=== PATIENT | female | born 1975 ===

== ENCOUNTER 2016-11-29 13:23 | Inpatient (IN) | payer MEDICAID, OTHER ==
[2016-11-29 13:24] VITALS: BMI 16.1
[2016-11-29 13:31] VITALS: O2SAT 100
[2016-11-29 15:23] LABS: BASO # 0.1 K/uL (0.0-0.2); BASO % 0.6 % (0.0-2.0); EOS # 0.1 K/uL (0.0-0.7); EOS % 1.1 % (0.0-4.0); LYMPH # 1.3 K/uL (1.0-4.3); LYMPH % 16.1 % (20.0-40.0); MEAN CELL VOLUME 96.1 fL (81.0-99.0); MEAN CORPUSCULAR HEMOGLOBIN 31.6 pg (27.0-31.0); MEAN CORPUSCULAR HGB CONC 32.8 g/dL (33.0-37.0); MEAN PLATELET VOLUME 8.5 fL (7.2-11.7); MONO # 0.8 K/uL (0.0-0.8); MONO % 9.4 % (0.0-10.0); RED CELL DISTRIBUTION WIDTH 12.8 % (11.5-14.5); WHITE BLOOD COUNT 8.2 K/uL (4.8-10.8)
[2016-11-29 15:35] LABS: CHLORIDE 101 mmol/L (98-107); SODIUM 140 mmol/L (132-148)
[2016-11-29 15:37] LABS: GFR AFRICAN-AMERICAN > 60
[2016-11-29 15:38] LABS: ALKALINE PHOSPHATASE 62 U/L (38-126); ALT/SGPT 40 U/L (9-52); AST/SGOT 29 U/L (14-36); BILIRUBIN,TOTAL 0.8 mg/dL (0.2-1.3); BLOOD UREA NITROGEN 11 mg/dL (7-17); CALCIUM 8.8 mg/dl (8.6-10.4); CARBON DIOXIDE 25 mmol/L (22-30); GLUCOSE,RANDOM 90 mg/dL (65-105); TOTAL PROTEIN 8.8 g/dL (6.3-8.3)
[2016-11-29 15:39] LABS: ALCOHOL SERUM < 10 mg/dl (0-10)
[2016-11-29 18:31] LABS: RBC URINE 1 /hpf (0-3); URINE BACTERIA RARE (<OCC); URINE BILIRUBIN NEGATIVE (NEGATIVE); URINE BLOOD NEGATIVE (NEGATIVE); URINE COLOR Yellow (YELLOW); URINE GLUCOSE (UA) NORMAL (Normal); URINE KETONE TRACE mg/dL (NEGATIVE); URINE LEUKOCYTE ESTERASE NEG Leu/uL (Negative); URINE PROTEIN NEGATIVE (NEGATIVE); URINE UROBILINOGEN NORMAL mg/dL (0.2-1.0); WBC URINE < 1 /hpf (0-5)
--- NOTE | 2016-11-29 18:40 | C.PDOC ---
History Of Present Illness Pt was BIBEMS from the clinic due to bizarre behavior. Time Seen by Provider: 11/29/16 14:02 Chief Complaint (Nursing): Psychiatric Evaluation History Per: Patient, EMS History/Exam Limitations: other (Poor insight) Onset/Duration Of Symptoms: Unknown Current Symptoms Are (Timing): Still Present Suicide/Self Injury Attempted (Context): None Modifying Factor(s): None Severity: Moderate Associated Symptoms: Anxiety, Agitation. denies: Suicidal Thoughts, Suicidal Plan Additional History Per: Prior Records Past Medical History Reviewed: Historical Data, Nursing Documentation, Vital Signs Vital Signs: Last Vital Signs Temp 98.7 F 11/29/16 17:41 Pulse 77 11/29/16 17:41 Resp 20 11/29/16 17:41 BP 117/80 11/29/16 17:41 Pulse Ox 100 11/29/16 17:41 - Medical History PMH: Anxiety, Asthma, Bipolar Disorder, Depression, Migraine, Post Traumatic Stress Disorder, Schizophrenia Surgical History: - [facility] Procedures GROUP PSYCHOTHERAPY (11/05/16) INDIVID PSYCHOTHERAP NEC (08/16/14) INDIVIDUAL PSYCHOTHERAPY, BEHAVIORAL (11/05/16) INJECT/INFUSE NEC (08/08/14) OTHER GROUP THERAPY (04/19/14) PSYCHIA INTERV/EVAL NEC (08/12/14) PSYCHIAT DRUG THERAP NEC (08/16/14) Family History: States: Unknown Family Hx - Social History Hx Tobacco Use: Yes Hx Alcohol Use: No Hx Substance Use: No - Immunization History Hx Tetanus Toxoid Vaccination: Yes Hx Influenza Vaccination: No Hx Pneumococcal Vaccination: No Review Of Systems Except As Marked, All Systems Reviewed And Found Negative. Constitutional: Negative for: Fever Cardiovascular: Negative for: Chest Pain Respiratory: Negative for: Shortness of Breath Gastrointestinal: Negative for: Vomiting, Abdominal Pain Musculoskeletal: Negative for: Neck Pain Skin: Negative for: Rash Neurological: Positive for: Headache (?). Negative for: Weakness, Numbness, Seizures Physical Exam - Physical Exam Appears: Non-toxic, No Acute Distress, Agitated (pt is talking to herself and appears to have auditory hallucinations) Skin: Normal Color, Warm, Dry Head: Atraumatic Eye(s): bilateral: PERRL, EOMI Neck: Normal ROM, Supple Cardiovascular: Rhythm Regular Respiratory: Normal Breath Sounds, No Accessory Muscle Use Gastrointestinal/Abdominal: Soft, No Tenderness Back: No CVA Tenderness Extremity: Normal ROM Neurological/Psych: Oriented x3, Normal Motor, Normal Sensation ED Course And Treatment - Laboratory Results Result Diagrams: 11/29/16 15:18 11/29/16 14:11 Lab Interpretation: No Acute Changes Urine POC: Negative O2 Sat by Pulse Oximetry: 100 Pulse Ox Interpretation: Normal Progress Note: Pt is medically stable for psychiatric admission. Disposition Counseled Patient/Family Regarding: Studies Performed, Diagnosis - Disposition Disposition: HOSPITALIZED Disposition Time: 18:40 Condition: STABLE - Clinical Impression Clinical Impression: Bipolar disorder Decision To Admit - Pt Status Changed To: Hospital Disposition Of: Inpatient - Admit Certification Admit to Inpatient:: After my assessment, the patient will require hospitalization for at least two midnights. This is because of the severity of symptoms shown, intensity of services needed, and/or the medical risk in this patient being treated as an outpatient. - InPatient: Physician Admission Certification: I certify that this patient requires 2 or more midnights of care for the following reason:: Psych - . Bed Request Type: Psychiatry Admitting Physician: Yaritza Patel Patient Diagnosis: Bipolar disorder
[2016-11-30] MEDS: Divalproex 500 mg DR Tab PO SCH ×2 (10:53→18:11)
--- NOTE | 2016-11-30 18:08 | PCM.PSYCH ---
Initial Psychiatric Evaluation - Initial Psychiatric Evaluation Type of Admission: Voluntary Legal Status: Capacity Chief Complaint (in patient's own words): I'm feeling very anxious History of Present Illness and Precipitating Events: Patient is a 41 year-old CF, who is currently living alone and has a long history of bipolar disorder with psychosis/schizoaffective disorder bipolar type presented to the ED via EMS with with disorganized and internally preoccupied behavior. According to the collateral information, pt was recently discharged from [address] and instructed to follow-up with [facility] for outpatient mental health treatment. Pt according to her case-manager [employer]ospace has been compliant with attendance despite being unable to participate in the program activities. Pt reportedly has been observed talking to herself and making hand gestures during face-face conversations. As a result pt was sent to the hospital for evaluation. Pt required 1:1 observation in the ED due to erratic and labile behavior. As per the staff, patient remained disorganized and internally preoccupied even in the unit. She continued to pace back and forth in the hallways. She was making a full conversation with herself. She appeared paranoid, delusional and bizarre. However, she denied any thoughts of harming herself or harming others. She also denies any drinking or any substance abuse. Past medical history None reported Current Medications: Active Medications Generic Name Dose Route Start Last Admin Trade Name Freq PRN Reason Stop Dose Admin Divalproex Sodium 500 mg 11/30/16 10:30 11/30/16 10:[address] PO 500 mg BID ANNA Administration Haloperidol 5 mg 11/29/16 22:17 11/30/16 09:56 Haldol PO 5 mg Q1H PRN Administration agitation max 4x/24h Hydroxyzine HCl 25 mg 11/29/16 20:26 11/29/16 22:04 Atarax PO 25 mg Q4H PRN Administration Anxiety Ibuprofen 600 mg 11/29/16 20:26 Motrin Tab PO Q6H PRN Pain, moderate (4-7) Olanzapine 15 mg 11/30/16 10:29 Zyprexa PO HS ANNA Pneumococcal Polyvalent Vaccine 0.5 ml 12/02/16 10:00 Pneumovax 23 Vaccine IM 12/02/16 10:01 .ONCE ONE Past Psychiatric History - Past Psychiatric History Previous Treatment History: Inpatient Pertinent Medical Hx (Current Medical&Sleep Prob, Allergies): Allergies Allergy/AdvReac Type Severity Reaction Status Date / Time nut - unspecified [nut] Allergy SWELLING Verified 11/05/16 10:34 Penicillins Allergy SWELLING Verified 11/05/16 10:34 Benztropine [Cogentin] 1 mg PO BID #60 tab 11/15/16 Olanzapine [Zyprexa] 10 mg PO BID 11/29/16 Review of Systems - Review of Systems All systems: reviewed and no additional remarkable complaints except - Psychiatric Psychiatric: Anxiety, Auditory Hallucinations, Irritability, Paranoia, Visual Hallucinations Mental Status Examination - Personal Presentation Personal Presentation: Looks stated age - Affect Affect: Broad - Motor Activity Motor Activity: Psychomotor Agitation - Reliability in Providing Information Reliability in Providing Information: Poor, due to alteration in thoughts, Poor , due to altered mood - Speech Speech: Disorganized - Mood Mood: Anxious - Formal Thought Process Formal Thought Process: Hallucinations, Delusions, Paranoia, Loosening of associations, Flight of ideas, Circumstantial - Hallucinations/Delusions Hallucinations: Visual, Auditory Delusions: Persecution - Obsessions/Compulsions Obsessions: No Compulsions: No - Cognitive Functions Orientation: Person, Place, Situation, Time Sensorium: Alert Attention/Concentration: Attentive Abstract Thinking: [place] Estimate of Intelligence: Below average Judgement: Imparied, as evidence by: Poor judgement, Imparied, as evidence by: Lack of insight into illness - Risk Risk: Diminished functioning - Limitations Limitations: Living alone DSM 5 DX - DSM 5 DSM 5 Diagnosis: Schizoaffective disorder bipolar type - Recommended/Plan of Treatment Treatment Recommendations and Plan of Treatment: Schizoaffective disorder bipolar type CBT Psychoeducation Supportive therapy, group therapy, individual therapy Olanzapine 15 mg by mouth HS Neurontin 100 mg by mouth 3 times a day Trazodone 50 mg by mouth daily at bedtime Depakote 500 mg by mouth bid - Smoking Cessation Smoking Cessation Initiated: No
[2016-12-01] MEDS: Divalproex 500 mg DR Tab PO SCH ×2 (10:14→17:17)
--- NOTE | 2016-12-01 10:29 | PCM.PYCHPN ---
Psychiatric Progress Note - Psychiatric Progress Note Patient seen today, length of contact: 17 min Patient Chief Complaint: I'm feeling very anxious Problems Identified/Issues Discussed: Patient seen and evaluated, chart reviewed and discussed with the nurse. Patient remained disorganized and internally preoccupied. Patient reports irritability, anxiety and agitation. She reports racing of thoughts and flight of ideas. Patient still appears paranoid and delusional. She is still talking to herself and pacing back and forth in the hallways and appears to have thought blockings. However she denies any auditory or visual hallucinations.she is taking medication and denies any side effects. Supportive therapy and psychoeducation were given. Medication Change: Yes (increase olanzapine) Medical Record Reviewed: Yes Mental Status Examination - Cognitive Function Orientation: Person, Place, Situation, Time Memory: Intact Attention: Poor Concentration: Poor Association: Loose Fund of Knowledge: Poor - Mood Mood: Anxious - Affect Affect: Broad - Formal Thought Process Formal Thought Process: Hallucinations, Delusions, Paranoia, Loosening of associations, Flight of ideas, Circumstantial - Suicidal Ideation Suicidal Ideation: No - Homicidal Ideation Homicidal Ideation: No Goal/Treatment Plan - Goal/Treatment Plan Need for Continued Stay: Remain at risks for inpatient hospitalization, Discharge may exacerbated symptoms, Severe functional impairment Progress Toward Problem(s) and Goals/Treatment Plan: Schizoaffective disorder bipolar type CBT Psychoeducation Supportive therapy, group therapy, individual therapy Olanzapine 15 mg by mouth HS Olanzapine 5 mg daily Neurontin 100 mg by mouth 3 times a day Trazodone 50 mg by mouth daily at bedtime Depakote 500 mg by mouth bid - Smoking Cessation Smoking Cessation Initiated: No
[2016-12-02] MEDS ORDERED: Pneumococcal 23-Valent Vaccine IM ONE (10:00)
[2016-12-02] MEDS: Divalproex 500 mg DR Tab PO SCH ×2 (10:52→17:42)
--- NOTE | 2016-12-02 15:50 | PCM.PYCHPN ---
Psychiatric Progress Note - Psychiatric Progress Note Patient seen today, length of contact: 18 min Patient Chief Complaint: I'm feeling anxious Problems Identified/Issues Discussed: Patient seen and evaluated, chart reviewed and discussed with the nurse. As per the staff, patient continued to have a conversation with herself and continued to pace back and forth in the hallways. Patient remained disorganized and internally preoccupied. Patient still appears paranoid and delusional. However she denies any auditory or visual hallucinations. She is taking medication and denies any side effects. Supportive therapy and psychoeducation were given. Medication Change: Yes (start Prolixin) Medical Record Reviewed: Yes Mental Status Examination - Cognitive Function Orientation: Person, Place, Situation, Time Memory: Intact Attention: Poor Concentration: Poor Association: Loose Fund of Knowledge: Poor - Mood Mood: Anxious - Affect Affect: Broad - Formal Thought Process Formal Thought Process: Hallucinations, Delusions, Paranoia, Loosening of associations, Flight of ideas, Circumstantial - Suicidal Ideation Suicidal Ideation: No - Homicidal Ideation Homicidal Ideation: No Goal/Treatment Plan - Goal/Treatment Plan Need for Continued Stay: Remain at risks for inpatient hospitalization, Discharge may exacerbated symptoms, Severe functional impairment Progress Toward Problem(s) and Goals/Treatment Plan: Schizoaffective disorder bipolar type CBT Psychoeducation Supportive therapy, group therapy, individual therapy D/C Olanzapine 15 mg by mouth HS Olanzapine 5 mg HS Prolixin 5 mg by mouth twice a day Neurontin 100 mg by mouth 3 times a day Trazodone 50 mg by mouth daily at bedtime Depakote 500 mg by mouth bid - Smoking Cessation Smoking Cessation Initiated: No
--- NOTE | 2016-12-03 09:43 | PCM.PYCHPN ---
Psychiatric Progress Note - Psychiatric Progress Note Patient seen today, length of contact: 17 min Patient Chief Complaint: I'm feeling anxious Problems Identified/Issues Discussed: Patient seen and evaluated, chart reviewed and discussed with the nurse. Today patient remained disorganized and internally preoccupied. She still pacing back and forth in the hallways and appears very delusional, paranoid and psychotic. She appears disheveled and unkempt. However she is taking medication and denies any side effects. Supportive therapy and psychoeducation were given. Medication Change: Yes (start Prolixin) Medical Record Reviewed: Yes Mental Status Examination - Cognitive Function Orientation: Person, Place, Situation, Time Memory: Intact Attention: Poor Concentration: Poor Association: Loose Fund of Knowledge: Poor - Mood Mood: Anxious - Affect Affect: Broad - Formal Thought Process Formal Thought Process: Hallucinations, Delusions, Paranoia, Loosening of associations, Flight of ideas, Circumstantial - Suicidal Ideation Suicidal Ideation: No - Homicidal Ideation Homicidal Ideation: No Goal/Treatment Plan - Goal/Treatment Plan Need for Continued Stay: Remain at risks for inpatient hospitalization, Discharge may exacerbated symptoms, Severe functional impairment Progress Toward Problem(s) and Goals/Treatment Plan: Schizoaffective disorder bipolar type CBT Psychoeducation Supportive therapy, group therapy, individual therapy D/C Olanzapine 15 mg by mouth HS Olanzapine 5 mg HS Prolixin 5 mg by mouth twice a day Neurontin 100 mg by mouth 3 times a day Trazodone 50 mg by mouth daily at bedtime Depakote 500 mg by mouth bid - Smoking Cessation Smoking Cessation Initiated: No
[2016-12-03] MEDS: Divalproex 500 mg DR Tab PO SCH ×2 (10:24→18:01)
[2016-12-04] MEDS: Divalproex 500 mg DR Tab PO SCH ×2 (10:04→18:17)
--- NOTE | 2016-12-04 11:29 | PCM.PYCHPN ---
Psychiatric Progress Note - Psychiatric Progress Note Patient seen today, length of contact: 16 min Patient Chief Complaint: I'm feeling anxious Problems Identified/Issues Discussed: Patient seen and evaluated, chart reviewed and discussed with the nurse. As per the staff, patient continued to have a conversation with herself and continued to pace back and forth in the hallways. She is still denying any auditory or visual hallucinations. However she appears a bit more organized but remained internally preoccupied, and delusional. She is taking medication and denies any side effects. Supportive therapy and psychoeducation were given. Medication Change: Yes (Increase Prolixin) Medical Record Reviewed: Yes Mental Status Examination - Cognitive Function Orientation: Person, Place, Situation, Time Memory: Intact Attention: Poor Concentration: Poor Association: Loose Fund of Knowledge: Poor - Mood Mood: Anxious - Affect Affect: Broad - Formal Thought Process Formal Thought Process: Hallucinations, Delusions, Paranoia, Loosening of associations, Flight of ideas, Circumstantial - Suicidal Ideation Suicidal Ideation: No - Homicidal Ideation Homicidal Ideation: No Goal/Treatment Plan - Goal/Treatment Plan Need for Continued Stay: Remain at risks for inpatient hospitalization, Discharge may exacerbated symptoms, Severe functional impairment Progress Toward Problem(s) and Goals/Treatment Plan: Schizoaffective disorder bipolar type CBT Psychoeducation Supportive therapy, group therapy, individual therapy Olanzapine 5 mg HS Prolixin 5 mg by mouth twice a day Neurontin 100 mg by mouth 3 times a day Trazodone 50 mg by mouth daily at bedtime Depakote 500 mg by mouth bid - Smoking Cessation Smoking Cessation Initiated: No
[2016-12-05] MEDS: Divalproex 500 mg DR Tab PO SCH ×2 (09:32→17:50)
--- NOTE | 2016-12-05 16:15 | PCM.PYCHPN ---
Psychiatric Progress Note - Psychiatric Progress Note Patient seen today, length of contact: 15 min Patient Chief Complaint: I'm feeling anxious Problems Identified/Issues Discussed: Patient seen and evaluated, chart reviewed and discussed with the nurse. As per the staff patient has started attending groups. However she leaves the group and starts pacing back and forth in the hallways. She is reporting anxiety and irritability and she denies any auditory or visual hallucinations.she still appears unkempt and disheveled and still appears paranoid and delusional. She is taking medication and denies any side effects. Supportive therapy and psychoeducation were given. Medication Change: Yes (Discontinue olanzapine) Medical Record Reviewed: Yes Mental Status Examination - Cognitive Function Orientation: Person, Place, Situation, Time Memory: Intact Attention: Poor Concentration: Poor Association: Loose Fund of Knowledge: Poor - Mood Mood: Anxious - Affect Affect: Broad - Formal Thought Process Formal Thought Process: Hallucinations, Delusions, Paranoia, Loosening of associations, Flight of ideas, Circumstantial - Suicidal Ideation Suicidal Ideation: No - Homicidal Ideation Homicidal Ideation: No Goal/Treatment Plan - Goal/Treatment Plan Need for Continued Stay: Remain at risks for inpatient hospitalization, Discharge may exacerbated symptoms, Severe functional impairment, Other Progress Toward Problem(s) and Goals/Treatment Plan: Schizoaffective disorder bipolar type CBT Psychoeducation Supportive therapy, group therapy, individual therapy Prolixin 5 mg by mouth twice a day Neurontin 100 mg by mouth 3 times a day Trazodone 50 mg by mouth daily at bedtime Depakote 500 mg by mouth bid - Smoking Cessation Smoking Cessation Initiated: No
[2016-12-06] MEDS: Divalproex 500 mg DR Tab PO SCH ×2 (11:46→21:20)
--- NOTE | 2016-12-06 14:21 | PCM.PYCHPN ---
Psychiatric Progress Note - Psychiatric Progress Note Patient seen today, length of contact: 18 min Patient Chief Complaint: I feel happy Problems Identified/Issues Discussed: Pt seen, chart reviewed and case discussed. Pt is compliant with treatment, without adverse effects. Reports feeling better and like her mind is clear. Does admit to feeling like people are out to get her at times. Pt noted to be pacing in the hallways, talking to herself. Pt's symptoms are slightly improved , however continues to be disorganized and internally preoccupied. Denies auditory hallucinations, visual hallucinations, suicidal ideation, homicidal ideation. Aftercare discussed, psychoeducation and support given. Medication Change: No Medical Record Reviewed: Yes Mental Status Examination - Cognitive Function Orientation: Person, Place, Situation, Time Memory: Intact Attention: Poor Concentration: Poor Association: Loose Fund of Knowledge: Poor - Mood Mood: Anxious - Affect Affect: Flat - Speech Speech: Appropriate - Formal Thought Process Formal Thought Process: Hallucinations, Delusions, Paranoia, Loosening of associations - Suicidal Ideation Suicidal Ideation: No - Homicidal Ideation Homicidal Ideation: No Goal/Treatment Plan - Goal/Treatment Plan Need for Continued Stay: Remain at risks for inpatient hospitalization, Discharge may exacerbated symptoms, Severe functional impairment Progress Toward Problem(s) and Goals/Treatment Plan: Schizoaffective disorder bipolar type CBT Psychoeducation Supportive therapy, group therapy, individual therapy Prolixin 5 mg by mouth every morning Prolixin 10 mg by mouth daily at bedtime Trazodone 50 mg by mouth daily at bedtime Depakote 500 mg by mouth bid Cogentin 1 mg by mouth twice a day Estimated Date of D/C: 12/09/16 - Smoking Cessation Smoking Cessation Initiated: No
--- NOTE | 2016-12-06 15:22 | PCM.PYCHPN ---
Psychiatric Progress Note - Psychiatric Progress Note Patient seen today, length of contact: 18 min Patient Chief Complaint: I feel happy Problems Identified/Issues Discussed: Pt seen, chart reviewed and case discussed. Pt is compliant with treatment, without adverse effects. Reports feeling better and like her mind is clear. Does admit to feeling like people are out to get her at times. Pt noted to be pacing in the hallways, talking to herself. Pt's symptoms are slightly improved , however continues to be disorganized and internally preoccupied. Denies auditory hallucinations, visual hallucinations, suicidal ideation, homicidal ideation. Aftercare discussed, psychoeducation and support given. Medication Change: No Medical Record Reviewed: Yes Mental Status Examination - Cognitive Function Orientation: Person, Place, Situation, Time Memory: Intact Attention: Poor Concentration: Poor Association: Loose Fund of Knowledge: Poor - Mood Mood: Anxious - Affect Affect: Flat - Speech Speech: Appropriate - Formal Thought Process Formal Thought Process: Hallucinations, Delusions, Paranoia, Loosening of associations - Suicidal Ideation Suicidal Ideation: No - Homicidal Ideation Homicidal Ideation: No Goal/Treatment Plan - Goal/Treatment Plan Need for Continued Stay: Remain at risks for inpatient hospitalization, Discharge may exacerbated symptoms, Severe functional impairment Progress Toward Problem(s) and Goals/Treatment Plan: Schizoaffective disorder bipolar type CBT Psychoeducation Supportive therapy, group therapy, individual therapy D/C Olanzapine 15 mg by mouth HS Olanzapine 5 mg HS Prolixin 5 mg by mouth twice a day Neurontin 100 mg by mouth 3 times a day Trazodone 50 mg by mouth daily at bedtime Depakote 500 mg by mouth bid Estimated Date of D/C: 12/08/16
[2016-12-07] MEDS: Divalproex 500 mg DR Tab PO SCH (10:10)
--- NOTE | 2016-12-07 14:52 | PCM.PYCHPN ---
Psychiatric Progress Note - Psychiatric Progress Note Patient seen today, length of contact: 17 min Patient Chief Complaint: I m feeling better Problems Identified/Issues Discussed: Pt seen, chart reviewed and case discussed. As per the staff patient appears more organized but remained internally preoccupied. She is still pacing back and forth in the hallways and talking to herself. Although she is taking showers and appears kempt but she continues to have a bedsheet on her shoulders, with that sometimes she wraps herself. she reports that her mind is more clear and denies any auditory or visual hallucinations. She is requesting to change Depakote pill to the liquid Depakene. Aftercare discussed, psychoeducation and support given. Medication Change: Yes (increase Prolixin, change Depakote) Medical Record Reviewed: Yes Mental Status Examination - Cognitive Function Orientation: Person, Place, Situation, Time Memory: Intact Attention: WNL Concentration: Poor Association: Loose Fund of Knowledge: Poor - Mood Mood: Anxious - Affect Affect: Flat - Speech Speech: Appropriate - Formal Thought Process Formal Thought Process: Delusions, Paranoia, Loosening of associations - Suicidal Ideation Suicidal Ideation: No - Homicidal Ideation Homicidal Ideation: No Goal/Treatment Plan - Goal/Treatment Plan Need for Continued Stay: Remain at risks for inpatient hospitalization, Discharge may exacerbated symptoms, Severe functional impairment Progress Toward Problem(s) and Goals/Treatment Plan: Schizoaffective disorder bipolar type CBT Psychoeducation Supportive therapy, group therapy, individual therapy Prolixin 10 mg by mouth every morning Prolixin 10 mg by mouth daily at bedtime Trazodone 50 mg by mouth daily at bedtime Change Depakote to Depakene solution 500 mg by mouth bid Cogentin 1 mg by mouth twice a day Estimated Date of D/C: 12/09/16 - Smoking Cessation Smoking Cessation Initiated: No
[2016-12-07] MEDS: Valproic Acid 250 mg/5 ml UD Cup PO SCH (18:37)
[2016-12-08] MEDS: Valproic Acid 250 mg/5 ml UD Cup PO SCH ×2 (10:43→18:28)
--- NOTE | 2016-12-08 11:17 | PCM.PYCHPN ---
Psychiatric Progress Note - Psychiatric Progress Note Patient seen today, length of contact: 17 min Patient Chief Complaint: I m feeling better Problems Identified/Issues Discussed: Pt seen, chart reviewed and case discussed. Patient reports improvement in mood and paranoia. She denies any auditory or visual hallucinations and denies any delusions. She is asking to increase the sleep medications. However she looked forward to go home tomorrow. She is taking medication and denied any side effects. Aftercare discussed, psychoeducation and support given. Medication Change: No (VPA level) Medical Record Reviewed: Yes Mental Status Examination - Cognitive Function Orientation: Person, Place, Situation, Time Memory: Intact Attention: WNL Concentration: WNL Association: WNL Fund of Knowledge: WNL - Mood Mood: Anxious - Affect Affect: Flat - Speech Speech: Appropriate, Soft - Formal Thought Process Formal Thought Process: No Impairment - Suicidal Ideation Suicidal Ideation: No - Homicidal Ideation Homicidal Ideation: No Goal/Treatment Plan - Goal/Treatment Plan Need for Continued Stay: Remain at risks for inpatient hospitalization, Discharge may exacerbated symptoms, Severe functional impairment Progress Toward Problem(s) and Goals/Treatment Plan: Schizoaffective disorder bipolar type CBT Psychoeducation Supportive therapy, group therapy, individual therapy Prolixin 10 mg by mouth every morning Prolixin 10 mg by mouth daily at bedtime Trazodone 50 mg by mouth daily at bedtime Change Depakote to Depakene solution 500 mg by mouth bid Cogentin 1 mg by mouth twice a day Estimated Date of D/C: 12/09/16 - Smoking Cessation Smoking Cessation Initiated: No
[2016-12-09] MEDS: Valproic Acid 250 mg/5 ml UD Cup PO SCH (10:03)
--- NOTE | 2016-12-09 10:05 | PCM.PYCHDC ---
Mental Status Examination - Mental Status Examination Orientation: Person, Place, Situation, Time Memory: Intact Mood: Neutral Affect: Constricted Speech: Soft Attention: WNL Concentration: WNL Association: WNL Fund of Knowledge: WNL Formal Thought Process: No Impairment Description of patient's judgement and insight: good, fair Psychotic Thoughts and Behaviors: denies any AVH Suicidal Ideation: No Current Homicidal Ideation?: No Discharge Summary - Discharge Note Reason for Hospitalization: Patient is a 41 year-old CF, who is currently living alone and has a long history of bipolar disorder with psychosis/schizoaffective disorder bipolar type presented to the ED via EMS with with disorganized and internally preoccupied behavior. According to the collateral information, pt was recently discharged from [address] and instructed to follow-up with [facility] for outpatient mental health treatment. Pt according to her case-cage manager has been compliant with attendance despite being unable to participate in the program activities. Pt reportedly has been observed talking to herself and making hand gestures during face-face conversations. As a result pt was sent to the hospital for evaluation. Pt required 1:1 observation in the ED due to erratic and labile behavior. As per the staff, patient remained disorganized and internally preoccupied even in the unit. She continued to pace back and forth in the hallways. She was making a full conversation with herself. She appeared paranoid, delusional and bizarre. However, she denied any thoughts of harming herself or harming others. She also denies any drinking or any substance abuse. Laboratory Data: Abnormal Lab Results 12/09/16 07:04 Valproic Acid 68.9 Consultations:: List each consultation separately and include: 1. Reason for request. 2. Findings. 3. Follow-up Summary of Hospital Course include:: 1. Description of specific treatment plan utilized for patients during their course of treatmen. 2. Summarize the time- course for resolution of acute symptoms and/or regressed behaviors. 3. Describe issues identified and worked on during hospitalization. 4. Describe medication utilized. 5. Describe medical problems identified and treated. 6. Reassessment of suicide risk Summary of Hospital Course: During the course of her stay, patient (pt) started progressively improving and she no longer remained irritable, anxious and paranoid. Her mood and paranoia were improved and she started attending groups and meetings and started socializing. Patient denied any feelings of hopelessness, helplessness, and worthlessness, denied any problem with the sleep or appetite, denied suicidal ideation or homicidal ideation. Pt denied any auditory or visual hallucinations. Some changes were made in her current medications and patient was discharged on following medications. She tolerated these medications very well and denied any side effects. - Final Diagnosis (DSM 5) Condition upon Discharge: STABLE DSM 5: Schizoaffective disorder bipolar type Disposition: HOME/ ROUTINE Follow-up Treatment Plan: Education: Pt was educated and counseled about the risks and benefits of taking and not taking medications. Pt was educated and counseled about the risks of drinking and abusing drugs. Pt was educated and counseled to go to the ER or call 911 if pt develop suicidal ideation or homicidal ideation, worsening of symptoms or severe side effects of the meds. Prescriptions/Medication Reconciliation: Benztropine [Cogentin] 1 mg PO BID #60 tab Divalproex [Depakote DR(*BID*)] 500 mg PO BID #60 tcp fluPHENAZine [Prolixin] 10 mg PO BID #60 tab - Smoking Cessation Smoking Cessation Medication prescribed: No - Antipsychotic Medications Pt discharged on 2 or more routine antipsychotic medications: No
[2016-12-09 11:10] VITALS: BP 105/69; PULSE 70; RESP 20; TEMP 93
== END 2016-12-09 12:00 | disposition home or self-care (01) | DRG 430 ==
LOC: C.ER 13:23 → C.5E 18:41
PROVIDERS: ADMIT Psychiatry & Neurology Psychiatry; ATTEND Psychiatry & Neurology Psychiatry
DX: F25.0 Schizoaffective disorder, bipolar type (principal)

== ENCOUNTER 2017-07-31 13:54 | Inpatient (IN) | payer MEDICAID, OTHER ==
[2017-07-31 13:55] VITALS: BMI 16.9
[2017-07-31 14:39] LABS: BASO % 0.6 % (0.0-2.0); EOS # 0.1 K/uL (0.0-0.7); EOS % 1.2 % (0.0-4.0); HEMATOCRIT 40.5 % (34.0-47.0); LYMPH # 1.7 K/uL (1.0-4.3); LYMPH % 24.4 % (20.0-40.0); MEAN CELL VOLUME 95.4 fL (81.0-99.0); MEAN CORPUSCULAR HEMOGLOBIN 32.4 pg (27.0-31.0); MEAN PLATELET VOLUME 9.3 fL (7.2-11.7); MONO # 0.6 K/uL (0.0-0.8); MONO % 8.3 % (0.0-10.0); RED CELL DISTRIBUTION WIDTH 12.2 % (11.5-14.5); WHITE BLOOD COUNT 6.9 K/uL (4.8-10.8)
[2017-07-31 14:48] LABS: ALCOHOL SERUM < 10 mg/dl (0-10); ALKALINE PHOSPHATASE 72 U/L (38-126); ALT/SGPT 38 U/L (9-52); AST/SGOT 21 U/L (14-36); BILIRUBIN,TOTAL 0.9 mg/dL (0.2-1.3); BLOOD UREA NITROGEN 9 mg/dL (7-17); CALCIUM 8.6 mg/dl (8.6-10.4); CARBON DIOXIDE 32 mmol/L (22-30); CHLORIDE 101 mmol/L (98-107); GFR AFRICAN-AMERICAN > 60; GLUCOSE,RANDOM 89 mg/dL (65-105); POTASSIUM 3.9 mmol/L (3.6-5.2); SODIUM 140 mmol/L (132-148); TOTAL PROTEIN 9.2 g/dL (6.3-8.3)
[2017-07-31 14:51] LABS: ALB/GLOB RATIO 0.8 (1.0-2.1)
[2017-07-31 15:06] LABS: RBC URINE 1 /hpf (0-3); URINE BACTERIA MOD (<OCC); URINE BILIRUBIN NEGATIVE (NEGATIVE); URINE BLOOD NEGATIVE (NEGATIVE); URINE COLOR Yellow (YELLOW); URINE GLUCOSE (UA) NORMAL (Normal); URINE KETONE NEGATIVE (NEGATIVE); URINE LEUKOCYTE ESTERASE NEG Leu/uL (Negative); URINE PROTEIN NEGATIVE (NEGATIVE); URINE UROBILINOGEN NORMAL mg/dL (0.2-1.0); WBC URINE 4 /hpf (0-5)
--- NOTE | 2017-07-31 15:06 | C.PDOC ---
History Of Present Illness 41-year-old female, PMHx includes Anxiety, Asthma, Bipolar Disorder, Depression , Migraine, Post Traumatic Stress Disorder, and Schizophrenia, presents to the emergency department with complaints of two-day duration of depression, and suicidal ideation. Patient states her plan is to overdose on her own medication. Patient also notes auditory hallucinations, telling her to kill herself. Denies any EtOH or drug use. Denies HI. No other complaints at this time. Time Seen by Provider: 07/31/17 14:10 Chief Complaint (Nursing): Psychiatric Evaluation History Per: Patient History/Exam Limitations: no limitations Current Symptoms Are (Timing): Still Present Past Medical History Reviewed: Historical Data, Nursing Documentation, Vital Signs Vital Signs: Last Vital Signs Temp 97.4 F L 07/31/17 14:02 Pulse 81 07/31/17 14:02 Resp 17 07/31/17 14:02 BP 122/82 07/31/17 14:02 Pulse Ox 99 07/31/17 16:54 - Medical History PMH: Anxiety, Asthma, Bipolar Disorder, Depression, Migraine, Post Traumatic Stress Disorder, Schizophrenia Surgical History: - [facility] GROUP PSYCHOTHERAPY (01/09/17) INDIVID PSYCHOTHERAP NEC (08/16/14) INDIVIDUAL PSYCHOTHERAPY, BEHAVIORAL (01/09/17) INJECT/INFUSE NEC (08/08/14) OTHER GROUP THERAPY (04/19/14) PSYCHIA INTERV/EVAL NEC (08/12/14) PSYCHIAT DRUG THERAP NEC (08/16/14) Family History: States: Unknown Family Hx - Social History Hx Tobacco Use: Yes Hx Alcohol Use: No (denies) Hx Substance Use: No (denies) - Immunization History Hx Tetanus Toxoid Vaccination: Yes Hx Influenza Vaccination: No Hx Pneumococcal Vaccination: No Review Of Systems Except As Marked, All Systems Reviewed And Found Negative. Constitutional: Negative for: Fever, Chills Cardiovascular: Negative for: Chest Pain Respiratory: Negative for: Shortness of Breath Gastrointestinal: Negative for: Vomiting Musculoskeletal: Negative for: Back Pain Neurological: Negative for: Weakness, Numbness, Headache Psych: Positive for: Depression Physical Exam - Physical Exam Appears: Non-toxic, No Acute Distress Skin: Warm, Dry, No Rash Head: Atraumatic, Normacephalic Eye(s): bilateral: Normal Inspection, PERRL Nose: Normal Oral Mucosa: Moist Lips: Normal Appearing Neck: Normal ROM Chest: Symmetrical Cardiovascular: Rhythm Regular, No Murmur Respiratory: Normal Breath Sounds, No Accessory Muscle Use Extremity: Normal ROM Neurological/Psych: Oriented x3, Normal Speech, Other (no focal deficit) ED Course And Treatment - Laboratory Results Result Diagrams: 07/31/17 14:31 07/31/17 14:31 O2 Sat by Pulse Oximetry: 99 Medical Decision Making Medical Decision Making: Patient cleared by psych and admitted to Dr Ibanez for schizoeffective disorder, bipolar type. Disposition Discussed With Dr.: Gen Ibanez Doctor Will See Patient In The: Hospital - Disposition Disposition: HOSPITALIZED Disposition Time: 16:56 Condition: STABLE Forms: [facility] (Romanian) - Clinical Impression Clinical Impression: Schizoaffective disorder - Scribe Statement The provider has reviewed the documentation as recorded by the Scribehsan Luna All medical record entries made by the Scribe were at my direction and personally dictated by me. I have reviewed the chart and agree that the record accurately reflects my personal performance of the history, physical exam, medical decision making, and the department course for this patient. I have also personally directed, reviewed, and agree with the discharge instructions and disposition.
--- NOTE | 2017-07-31 22:38 | PCM.BM ---
<Wei Barrera - Last Filed: 07/31/17 22:36> Treatment Plan Problems - Problems identified on initial assessmt Auditory Hallucination Date Initiated: 07/31/17 Time Initiated: 17:35 Assessment reference: NA Status: Active Suicidal Ideation Date Initiated: 07/31/17 Time Initiated: 17:35 Assessment reference: NA Status: Monitor Treatment assets and liabiliti Patient Assests: ADL independent, physically healthy, good support system, negotiates basic needs - Milieu Protocol Maintain good personal hygiene: daily Encourage regular showers, daily Remind patient to perform daily oral care, every shift Assist patient to perform ADL's Conduct patient checks and document Observation sheet: Q15 minutes Maintain personal safety: every shift Educate patient to report safety concerns to staff, every shift Monitor environment for contraband/sharps Medication safety: Monitor for expected outcome, potential side effects: every shift, Assess barriers to learning: every shift, Assess readiness for medication education: every shift <Gen Ibanez - Last Filed: 08/01/17 21:19> - Diagnosis (1) Schizoaffective disorder Status: Acute Interventions: 08/01/17 21:20 * Assess/adjust medications daily and /or as needed * See patient on an individual basis 7x/week to assess status of hallucinations * Discuss risks, benefits, side effects and alternatives of medications * <Elsa Castro - Last Filed: 08/04/17 10:43> Family Contact Family involvement: Family/SO is involved Family contact: Patient declines to allow family contact at present Discharge/Continuing Care - Education Needs Education Needs: Patient Medication, Patient Coping Skills - Discharge Discharge Criteria: Tolerates medication w/o severe side effects, Reduction of target symptoms Discharge to:: Home - Treatment Team Participation Discussed with Family/SO: No Was Patient/Family/SO present at Treatment Team Meeting: Yes
--- NOTE | 2017-08-01 15:12 | PCM.PSYCH ---
Initial Psychiatric Evaluation - Initial Psychiatric Evaluation Type of Admission: Voluntary Legal Status: Capacity Chief Complaint (in patient's own words): I'm alright doctor" History of Present Illness and Precipitating Events: Pt is a 41 y/o female who has a history of Bipolar Disorder, Depression , Migraine, Post Traumatic Stress Disorder, Schizophrenia was admitted 07/31 for with depression, Suicidal ideation and auditory hallucinations. As per the ED note, 'pt. reported that she called EMS because she was afraid to stay home due to feeling suicidal with a plan to OD on pills. Pt. reports that she has not been sleeping and has been pacing a lot. Pt. reports that she has a supportive family, but did not want her mother called. Pt remained a poor historian during assessment and remained guarded and superficially cooperative. Pt displays disorganized thought process and flat affect during the interview and on the floor. Pt states that she lives with her mother. Pt was diagnosed in 2016 by her psychiatrist, Dr. Pollock of [facility]. She has been prescribed Prozac by previously mentioned physician. She states the elizabeth stressor and trigger of her depression are thoughts on her past failed relationship. Pt states she is still experiencing auditory hallucinations command type but denies visual hallucinations. She said she was not able to get any sleep for 2 days. However she denies any homicidal ideations. Pt states the she drinks 2 glasses of wine a day and her last drink was on 07/21. She reports to smoke 5 cigarettes a day for the past 5 years. Pt is interested in smoking cessation. Past MHX: Asthma, Migraine, Post Traumatic Stress Disorder, Current Medications: Active Medications Generic Name Dose Route Start Last Admin Trade Name Freq PRN Reason Stop Dose Admin Benztropine Mesylate 1 mg 07/31/17 19:25 07/31/17 20:47 Cogentin PO 1 mg Q6H PRN Administration EPS symptoms Buspirone HCl 10 mg 07/31/17 19:00 08/01/17 10:45 Buspar PO 10 mg BID ANNA Administration Divalproex Sodium 250 mg 07/31/17 19:00 08/01/17 10:46 Depakote Er PO 250 mg BID ANNA Administration Haloperidol 5 mg 07/31/17 19:25 07/31/17 20:46 Haldol PO 5 mg PRN PRN Administration Severe anxiety Pneumococcal Polyvalent Vaccine 0.5 ml 08/03/17 10:00 Pneumovax 23 Vaccine IM 08/03/17 10:01 .ONCE ONE Trazodone HCl 50 mg 07/31/17 18:53 Desyrel PO HS PRN Insomnia Past Psychiatric History - Past Psychiatric History Previous Treatment History: Inpatient Pertinent Medical Hx (Current Medical&Sleep Prob, Allergies): Allergies Allergy/AdvReac Type Severity Reaction Status Date / Time almond Allergy RASH Verified 06/06/17 04:42 nut - unspecified [nut] Allergy SWELLING Verified 06/06/17 04:42 peanut Allergy RASH Verified 06/06/17 04:42 Penicillins Allergy SWELLING Verified 06/06/17 04:42 shellfish derived Allergy RASH Verified 06/06/17 04:42 Benztropine [Benztropine Mesylate] 1 mg PO BID 07/31/17 Buspar 07/31/17 Divalproex Sodium [Divalproex Sodium ER] 500 mg PO DAILY 07/31/17 Review of Systems - Review of Systems All systems: reviewed and no additional remarkable complaints except - Neurological Neurological: UNREMARKABLE - Psychiatric Psychiatric: Abnormal Sleep Pattern, Auditory Hallucinations, Change in Appetite , Depression, Irritability, Suicidal Ideation Mental Status Examination - Personal Presentation Personal Presentation: Looks stated age - Affect Affect: Flat - Motor Activity Motor Activity: Calm - Reliability in Providing Information Reliability in Providing Information: Poor, due to alteration in thoughts - Speech Speech: Disorganized - Mood Mood: Depressed, Anxious - Formal Thought Process Formal Thought Process: Hallucinations, Delusions, Paranoia, Loosening of associations - Hallucinations/Delusions Hallucinations: Auditory Delusions: Persecution - Obsessions/Compulsions Obsessions: No Compulsions: No - Cognitive Functions Orientation: Person, Place, Situation, Time Sensorium: Alert Attention/Concentration: Attentive Abstract Thinking: [place] Judgement: Imparied, as evidence by: Poor judgement, Imparied, as evidence by: Lack of insight into illness Memory: Recent intact, as evidence by: Ability to recall events of the day, Remote intact, as evidenced by: Ability to recall historical events - Risk Risk: Suicidal, Withdrawal, Diminished functioning - Limitations Limitations: Living alone DSM 5 DX - DSM 5 DSM 5 Diagnosis: Schizoaffective disorder bipolar type Alcohol use disorder mild - Recommended/Plan of Treatment Treatment Recommendations and Plan of Treatment: Schizoaffective disorder bipolar type CBT Psychoeducation Supportive therapy, group therapy, individual therapy Olanzapine 5 g by mouth twice a day Neurontin 100 mg by mouth 3 times a day Trazodone 50 mg by mouth daily at bedtime Alcohol use disorder mild CBT Psychoeducation Supportive therapy, individual therapy Use [place] for abstinence Asthma Continue prescribed medications Monitor signs and symptoms - Smoking Cessation Smoking Cessation Initiated: No
[2017-08-02 07:22] VITALS: O2SAT 97
--- NOTE | 2017-08-02 12:07 | PCM.PYCHPN ---
Psychiatric Progress Note - Psychiatric Progress Note Patient Chief Complaint: I'm alright doctor" Mental Status Examination - Cognitive Function Orientation: Person, Place, Situation, Time - Mood Mood: Depressed, Anxious - Affect Affect: Flat - Formal Thought Process Formal Thought Process: Hallucinations, Delusions, Paranoia, Loosening of associations - Homicidal Ideation Homicidal Ideation: No Goal/Treatment Plan - Goal/Treatment Plan Progress Toward Problem(s) and Goals/Treatment Plan: Schizoaffective disorder bipolar type CBT Psychoeducation Supportive therapy, group therapy, individual therapy Olanzapine 5 g by mouth twice a day Neurontin 100 mg by mouth 3 times a day Trazodone 50 mg by mouth daily at bedtime Alcohol use disorder mild CBT Psychoeducation Supportive therapy, individual therapy Use [place] for abstinence Asthma Continue prescribed medications Monitor signs and symptoms
[2017-08-03] MEDS ORDERED: Pneumococcal 23-Valent Vaccine IM ONE (10:00)
--- NOTE | 2017-08-03 11:39 | PCM.PYCHPN ---
Psychiatric Progress Note - Psychiatric Progress Note Patient Chief Complaint: I'm alright doctor" Mental Status Examination - Cognitive Function Orientation: Person, Place, Situation, Time - Mood Mood: Depressed, Anxious - Affect Affect: Flat - Formal Thought Process Formal Thought Process: Hallucinations, Delusions, Paranoia, Loosening of associations - Homicidal Ideation Homicidal Ideation: No Goal/Treatment Plan - Goal/Treatment Plan Progress Toward Problem(s) and Goals/Treatment Plan: Schizoaffective disorder bipolar type CBT Psychoeducation Supportive therapy, group therapy, individual therapy Olanzapine 5 g by mouth twice a day Neurontin 100 mg by mouth 3 times a day Trazodone 50 mg by mouth daily at bedtime Alcohol use disorder mild CBT Psychoeducation Supportive therapy, individual therapy Use [place] for abstinence Asthma Continue prescribed medications Monitor signs and symptoms
--- NOTE | 2017-08-04 10:49 | PCM.PYCHPN ---
Psychiatric Progress Note - Psychiatric Progress Note Patient seen today, length of contact: 17 min Patient Chief Complaint: I'm feeling better" Problems Identified/Issues Discussed: This patient was seen, chart reviewed, and case discussed with staff. Patient appears slightly disheveled with a flat affect. She appears more organized and less paranoid and less delusional than before. However, she continued to pace back and forth in the hallways. Patient remained isolated, confined and withdrawn. Patient still appears mildly paranoid and delusional. She reports improvement in her mood and improvement in the feelings of hopelessness and helplessness. Patient is compliant with medications and denies any side effects. Symptoms are improving but need more time to stabilize. Support and psychoeducation given. Medication Change: No Medical Record Reviewed: Yes Mental Status Examination - Cognitive Function Orientation: Person, Place, Situation, Time Attention: Poor Concentration: WNL Association: WNL Fund of Knowledge: Poor - Mood Mood: Depressed - Affect Affect: Flat - Speech Speech: Soft - Formal Thought Process Formal Thought Process: Loosening of associations - Suicidal Ideation Suicidal Ideation: No - Homicidal Ideation Homicidal Ideation: No Goal/Treatment Plan - Goal/Treatment Plan Need for Continued Stay: Severe depression anxiety, Discharge may exacerbated symptoms, Severe functional impairment Progress Toward Problem(s) and Goals/Treatment Plan: Schizoaffective disorder bipolar type CBT Psychoeducation Supportive therapy, group therapy, individual therapy Olanzapine 5 mg by mouth twice a day Neurontin 100 mg by mouth 3 times a day Trazodone 50 mg by mouth daily at bedtime Alcohol use disorder mild CBT Psychoeducation Supportive therapy, individual therapy Use [place] for abstinence Asthma Continue prescribed medications Monitor signs and symptoms - Smoking Cessation Smoking Cessation Initiated: No
--- NOTE | 2017-08-05 10:18 | PCM.PYCHPN ---
Psychiatric Progress Note - Psychiatric Progress Note Patient seen today, length of contact: 17 Patient Chief Complaint: I'm feeling better" Problems Identified/Issues Discussed: This patient was seen, chart reviewed, and case discussed with staff. Patient reports that her sleep was good. Pt states that her appetite is good. She states that she is no longer experiencing feelings of depression and hopelessness. Pt denies feelings of paranoia and anxiety. She denies suicidal ideations and homicidal ideations. She denies any auditory or visual hallucination. Patient appears slightly disheveled with a flat affect. She displays soft speech pattern and is cooperative. Pt has been participating in groups and has been interacting with the staff and other patients. Patient is compliant with medications and denies any side effects. Symptoms are improving but need more time to stabilize. Support and psychoeducation given. Medication Change: Yes (change depakote and prolixin) Medical Record Reviewed: Yes Mental Status Examination - Cognitive Function Orientation: Person, Place, Situation, Time Attention: WNL Concentration: WNL Association: Loose Fund of Knowledge: Poor - Mood Mood: Depressed - Affect Affect: Flat - Speech Speech: Soft - Formal Thought Process Formal Thought Process: Loosening of associations - Suicidal Ideation Suicidal Ideation: No - Homicidal Ideation Homicidal Ideation: No Goal/Treatment Plan - Goal/Treatment Plan Need for Continued Stay: Severe depression anxiety, Discharge may exacerbated symptoms, Severe functional impairment Progress Toward Problem(s) and Goals/Treatment Plan: Schizoaffective disorder bipolar type CBT Psychoeducation Supportive therapy, group therapy, individual therapy Olanzapine 5 g by mouth twice a day Neurontin 100 mg by mouth 3 times a day Trazodone 50 mg by mouth daily at bedtime Alcohol use disorder mild CBT Psychoeducation Supportive therapy, individual therapy Use [place] for abstinence Asthma Continue prescribed medications Monitor signs and symptoms
[2017-08-05] MEDS: Divalproex 500 mg ER Tab PO SCH (21:23)
--- NOTE | 2017-08-06 09:29 | PCM.PYCHPN ---
Psychiatric Progress Note - Psychiatric Progress Note Patient seen today, length of contact: 17 min Patient Chief Complaint: I'm feeling better" Problems Identified/Issues Discussed: This patient was seen, chart reviewed, and case discussed with staff. Patient reports improvement in her paranoia and mood. However, she continued to pace back and forth in the hallways and remained isolated, and withdrawn. Patient still appears mildly paranoid and delusional. She reports improvement in her mood and improvement in the feelings of hopelessness and helplessness. Patient is compliant with medications and denies any side effects. Symptoms are improving but need more time to stabilize. Support and psychoeducation given. Medication Change: Yes (change depakote and prolixin) Medical Record Reviewed: Yes Mental Status Examination - Cognitive Function Orientation: Person, Place, Situation, Time Attention: WNL Concentration: WNL Association: Loose Fund of Knowledge: Poor - Mood Mood: Depressed - Affect Affect: Flat - Speech Speech: Soft - Formal Thought Process Formal Thought Process: Loosening of associations - Suicidal Ideation Suicidal Ideation: No - Homicidal Ideation Homicidal Ideation: No Goal/Treatment Plan - Goal/Treatment Plan Need for Continued Stay: Severe depression anxiety, Discharge may exacerbated symptoms, Severe functional impairment Progress Toward Problem(s) and Goals/Treatment Plan: Schizoaffective disorder bipolar type CBT Psychoeducation Supportive therapy, group therapy, individual therapy Olanzapine 10 mg by mouth QHS Depakote 500 mg PO QHS Buspar 10 mg PO BID Trazodone 50 mg by mouth daily at bedtime Alcohol use disorder mild CBT Psychoeducation Supportive therapy, individual therapy Use [place] for abstinence Asthma Continue prescribed medications Monitor signs and symptoms - Smoking Cessation Smoking Cessation Initiated: No
[2017-08-06] MEDS: Divalproex 500 mg ER Tab PO SCH (22:09)
[2017-08-07] MEDS: Divalproex 500 mg ER Tab PO SCH (21:41)
--- NOTE | 2017-08-07 22:12 | PCM.PYCHPN ---
Psychiatric Progress Note - Psychiatric Progress Note Patient seen today, length of contact: 15 minute Patient Chief Complaint: I am feeling better. After eating food I just walk on the unit. Problems Identified/Issues Discussed: Patient seen, chart reviewed, case discussed with the staff. Issues related to illness and treatment were discussed with the patient and staff. Reported compliant with treatment with no adverse effects. Feeling much better. Aftercare discussed with the patient. Patient was awake, alert and oriented 3. Denied any delusions, auditory or visual hallucinations, suicidal ideations or homicidal ideations at the time of evaluation.. Medical Problems: None reported Diagnostic Results: Reviewed DSM 5 Symptoms Update: Improving with treatment Medication Change: No Medical Record Reviewed: Yes Mental Status Examination - Cognitive Function Orientation: Person, Place, Situation, Time Memory: Intact Attention: WNL Concentration: WNL Association: WNL Fund of Knowledge: [facility] Decription of patient's judgement and insights: Fair - Mood Mood: Neutral - Affect Affect: Other (Appropriate) - Speech Speech: Soft - Formal Thought Process Formal Thought Process: No Impairment Psychotic Thoughts and Behaviors: None - Suicidal Ideation Suicidal Ideation: No - Homicidal Ideation Homicidal Ideation: No Goal/Treatment Plan - Goal/Treatment Plan Need for Continued Stay: Remain at risks for inpatient hospitalization, Discharge may exacerbated symptoms, Severe functional impairment Progress Toward Problem(s) and Goals/Treatment Plan: Patient education Supportive therapy Continue treatment as before Patient will go to [facility] for follow-up care after discharge from the hospital. Estimated Date of D/C: 08/08/17 - Smoking Cessation Smoking Cessation Initiated: No
[2017-08-08 07:13] VITALS: BP 100/68; PULSE 74; RESP 18; TEMP 97
--- NOTE | 2017-08-08 09:58 | PCM.PYCHDC ---
Mental Status Examination - Mental Status Examination Orientation: Person, Place, Situation, Time Memory: Intact Mood: Neutral Affect: Constricted Speech: Soft Attention: WNL Concentration: WNL Association: WNL Fund of Knowledge: WNL Formal Thought Process: No Impairment Description of patient's judgement and insight: good, fair Psychotic Thoughts and Behaviors: Denies any AVH Suicidal Ideation: No Current Homicidal Ideation?: No Discharge Summary - Discharge Note Reason for Hospitalization: Pt is a 41 y/o female who has a history of Bipolar Disorder, Depression , Migraine, Post Traumatic Stress Disorder, Schizophrenia was admitted 07/31 for with depression, Suicidal ideation and auditory hallucinations. As per the ED note, 'pt. reported that she called EMS because she was afraid to stay home due to feeling suicidal with a plan to OD on pills. Pt. reports that she has not been sleeping and has been pacing a lot. Pt. reports that she has a supportive family, but did not want her mother called. Pt remained a poor historian during assessment and remained guarded and superficially cooperative. Pt displays disorganized thought process and flat affect during the interview and on the floor. Pt states that she lives with her mother. Pt was diagnosed in 2016 by her psychiatrist, Dr. Babb of [facility]. She has been prescribed Prozac by previously mentioned physician. She states the elizabeth stressor and trigger of her depression are thoughts on her past failed relationship. Pt states she is still experiencing auditory hallucinations command type but denies visual hallucinations. She said she was not able to get any sleep for 2 days. However she denies any homicidal ideations. Pt states the she drinks 2 glasses of wine a day and her last drink was on 07/21. She reports to smoke 5 cigarettes a day for the past 5 years. Pt is interested in smoking cessation. Consultations:: List each consultation separately and include: 1. Reason for request. 2. Findings. 3. Follow-up Summary of Hospital Course include:: 1. Description of specific treatment plan utilized for patients during their course of treatmen. 2. Summarize the time- course for resolution of acute symptoms and/or regressed behaviors. 3. Describe issues identified and worked on during hospitalization. 4. Describe medication utilized. 5. Describe medical problems identified and treated. 6. Reassessment of suicide risk Summary of Hospital Course: During the course of her stay, patient (pt) started progressively improving and she no longer remained irritable, anxious and paranoid. Her mood and paranoia were improved and she started attending groups and meetings and started socializing. Patient denied any feelings of hopelessness, helplessness, and worthlessness, denied any problem with the sleep or appetite, denied suicidal ideation or homicidal ideation. Pt denied any auditory or visual hallucinations. Some changes were made in her current medications and patient was discharged on following medications. She tolerated these medications very well and denied any side effects. She was discharged with a plan to follow-up with [facility]. - Diagnosis (1) Schizoaffective disorder Status: Acute Priority: High Comment: axis;schizoaffective disorder r/o substans abuse induced mood disorder eating disorder nos Haughton Ii ;none axis III;h/o pnumonia axis iV;eating disorder axis v; Plan : will start pt depression and eating disorder and increase risperdal to 1 mgmg bid for psychosis and pt agreed . patient needs further stabilization and D/C planning supportive psychotherapy. get collateral info from dr babb patient is asking to leave today and signed 48 hrs notie. can't hold her againist her will. she is not suicidal, not psychotic and has her own apartment. mother was made aware of the D/C AMA. - Final Diagnosis (DSM 5) Condition upon Discharge: STABLE DSM 5: Schizoaffective disorder bipolar type Alcohol use disorder mild Disposition: HOME/ ROUTINE Follow-up Treatment Plan: Education: Pt was educated and counseled about the risks and benefits of taking and not taking medications. Pt was educated and counseled about the risks of drinking and abusing drugs. Pt was educated and counseled to go to the ER or call 911 if pt develop suicidal ideation or homicidal ideation, worsening of symptoms or severe side effects of the meds. Prescriptions/Medication Reconciliation: Benztropine [Cogentin] 1 mg PO HS #30 tab busPIRone [Buspar] 10 mg PO BID #60 tab Divalproex [Depakote ER] 500 mg PO HS #30 ter fluPHENAZine [Prolixin] 10 mg PO HS #30 tab traZODone [Desyrel] 50 mg PO HS PRN #30 tab PRN Reason: Insomnia
== END 2017-08-08 10:40 | disposition home or self-care (01) | DRG 430 ==
LOC: C.ER 13:54 → C.5E 16:56
PROVIDERS: ADMIT Psychiatry & Neurology Psychiatry; ATTEND Psychiatry & Neurology Psychiatry
DX: F25.0 Schizoaffective disorder, bipolar type (principal); F50.9 Eating disorder, unspecified; F17.210 Nicotine dependence, cigarettes, uncomplicated; F43.10 Post-traumatic stress disorder, unspecified; G43.909 Migraine, unspecified, not intractable, without status migrainosus; J45.909 Unspecified asthma, uncomplicated

== ENCOUNTER 2017-09-23 12:10 | Inpatient (IN) | payer MEDICAID, OTHER ==
[2017-09-23 12:10] VITALS: BMI 16.9
[2017-09-23 12:42] LABS: HCG,QUALITATIVE URINE NEGATIVE (NEGATIVE)
[2017-09-23 12:49] LABS: SQUAMOUS EPITHIAL 21 /hpf (0-5); URINE BACTERIA MANY (<OCC); URINE BILIRUBIN NEGATIVE (NEGATIVE); URINE BLOOD NEGATIVE (NEGATIVE); URINE CLARITY Hazy (Clear); URINE COLOR Yellow (YELLOW); URINE GLUCOSE (UA) NORMAL (Normal); URINE LEUKOCYTE ESTERASE NEG Leu/uL (Negative); URINE NITRATE NEGATIVE (NEGATIVE); URINE PROTEIN NEGATIVE (NEGATIVE); URINE UROBILINOGEN NORMAL mg/dL (0.2-1.0)
[2017-09-23 13:09] LABS: BARBITURATES, UR NEGATIVE (NEGATIVE); BENZODIAZEPINES, UR NEGATIVE (NEGATIVE); OPIATES, UR NEGATIVE (NEGATIVE); PHENCYCLIDINE, UR NEGATIVE (NEGATIVE)
[2017-09-23 13:21] LABS: BASO % 0.5 % (0.0-2.0); EOS % 0.6 % (0.0-4.0); HEMOGLOBIN 13.2 g/dL (11.0-16.0); LYMPH # 1.4 K/uL (1.0-4.3); LYMPH % 22.2 % (20.0-40.0); MEAN CELL VOLUME 94.3 fL (81.0-99.0); MEAN CORPUSCULAR HEMOGLOBIN 33.4 pg (27.0-31.0); MEAN CORPUSCULAR HGB CONC 35.4 g/dL (33.0-37.0); MEAN PLATELET VOLUME 9.1 fL (7.2-11.7); MONO # 0.7 K/uL (0.0-0.8); MONO % 10.8 % (0.0-10.0); NEUT # 4.3 K/uL (1.8-7.0); NEUT % 65.9 % (50.0-75.0); RBC 3.96 Mil/uL (3.80-5.20); RED CELL DISTRIBUTION WIDTH 12.3 % (11.5-14.5); WHITE BLOOD COUNT 6.5 K/uL (4.8-10.8)
[2017-09-23 13:33] LABS: ALT/SGPT 19 U/L (9-52); AST/SGOT 20 U/L (14-36); BLOOD UREA NITROGEN 9 mg/dL (7-17); CALCIUM 8.9 mg/dl (8.6-10.4); GFR AFRICAN-AMERICAN > 60; GFR NON-AFRICAN AMERICAN > 60
--- NOTE | 2017-09-23 14:20 | C.PDOC ---
History Of Present Illness 42 year old female, with PMHx of depression with suicide attempts, presents to ED for evaluation of suicidal ideation without plan. Pt admits to being non- compliant with her medications. Otherwise, denies chest pain, shortness of breath, headache, fever, chills, cough, nausea, vomiting, diarrhea, abdominal pain, dizziness, lightheadedness, or any other physical complaints at this time. Time Seen by Provider: 09/23/17 12:29 Chief Complaint (Nursing): Psychiatric Evaluation History Per: Patient History/Exam Limitations: no limitations Onset/Duration Of Symptoms: Gradual Current Symptoms Are (Timing): Still Present Modifying Factor(s): None Severity: None Pain Scale Rating Of: 0 Associated Symptoms: Suicidal Thoughts. denies: Suicidal Plan Involuntary Hold By: None Recent travel outside of the [place]: No Additional History Per: Patient Past Medical History Reviewed: Historical Data, Nursing Documentation, Vital Signs Vital Signs: Last Vital Signs Temp 97.6 F 09/23/17 15:34 Pulse 79 09/23/17 15:34 Resp 18 09/23/17 15:34 BP 111/79 09/23/17 15:34 Pulse Ox 99 09/23/17 15:34 - Medical History PMH: Anxiety, Asthma, Bipolar Disorder, Depression, Migraine, Post Traumatic Stress Disorder, Schizophrenia Denies: Diabetes, Hepatitis, HIV, HTN, Chronic Kidney Disease, Seizures, Sexually Transmitted Disease Surgical History: - [facility] Procedures GROUP PSYCHOTHERAPY (01/09/17) INDIVID PSYCHOTHERAP NEC (08/16/14) INDIVIDUAL PSYCHOTHERAPY, BEHAVIORAL (01/09/17) INJECT/INFUSE NEC (08/08/14) OTHER GROUP THERAPY (04/19/14) PSYCHIA INTERV/EVAL NEC (08/12/14) PSYCHIAT DRUG THERAP NEC (08/16/14) Family History: States: Unknown Family Hx - Social History Hx Tobacco Use: Yes Hx Alcohol Use: Yes Hx Substance Use: No - Immunization History Hx Tetanus Toxoid Vaccination: Yes Hx Influenza Vaccination: No Hx Pneumococcal Vaccination: No Review Of Systems Except As Marked, All Systems Reviewed And Found Negative. Constitutional: Negative for: Fever, Chills Cardiovascular: Negative for: Chest Pain, Palpitations Respiratory: Negative for: Cough, Shortness of Breath Gastrointestinal: Negative for: Nausea, Vomiting, Abdominal Pain Neurological: Negative for: Headache, Dizziness Psych: Positive for: Suicidal ideation Physical Exam - Physical Exam Appears: Non-toxic, No Acute Distress Skin: Normal Color, Warm, Dry Head: Normacephalic Eye(s): bilateral: PERRL Nose: No Flaring Oral Mucosa: Moist Neck: Normal ROM, Supple Cardiovascular: Rhythm Regular Respiratory: No Accessory Muscle Use, No Rales, No Rhonchi, No Wheezing Extremity: Normal ROM, No Deformity Neurological/Psych: Oriented x3, Normal Speech ED Course And Treatment - Laboratory Results Result Diagrams: 09/23/17 13:13 09/23/17 13:13 Lab Interpretation: Normal O2 Sat by Pulse Oximetry: 96 (RA) Pulse Ox Interpretation: Normal Progress Note: Blood work, UA ordered and reviewed. AT 14:00, PT IS MEDICALLY CLEARED FOR PES EVALUATION. Pt was seen by PES Josefa, case discussed with psych -on-call and admission arranged. 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 - Scribe Statement The provider has reviewed the documentation as recorded by the Scribe Ruben Montelongo All medical record entries made by the Joseibehsan were at my direction and personally dictated by me. I have reviewed the chart and agree that the record accurately reflects my personal performance of the history, physical exam, medical decision making, and the department course for this patient. I have also personally directed, reviewed, and agree with the discharge instructions and disposition.
--- NOTE | 2017-09-23 17:27 | PCM.BM ---
<Ghulam Diaz - Last Filed: 09/23/17 17:25> Treatment Plan Problems - Problems identified on initial assessmt Depression Date Initiated: 09/23/17 Time Initiated: 17:15 Assessment reference: NA Status: Active Anxiety Date Initiated: 09/23/17 Time Initiated: 17:15 Assessment reference: NA Status: Active Treatment assets and liabiliti Patient Assests: cooperative, ADL independent, physically healthy, good support system, negotiates basic needs - Milieu Protocol Maintain good personal hygiene: daily Encourage regular showers, every shift Remind patient to perform daily oral care, every shift Assist patient to perform ADL's Conduct patient checks and document Observation sheet: Q15 minutes (For safety) Maintain personal safety: every shift Educate patient to report safety concerns to staff, every shift Monitor environment for contraband/sharps Medication safety: Monitor for expected outcome, potential side effects: every shift, Assess barriers to learning: every shift, Assess readiness for medication education: every shift <Gen Ibanez - Last Filed: 09/26/17 10:57> - Diagnosis (1) Schizophrenia Status: Acute Interventions: 09/26/17 10:58 * Assess/adjust medications daily and /or as needed * See patient on an individual basis 7x/week to assess status of hallucinations * Discuss risks, benefits, side effects and alternatives of medications * <Elsa Castro - Last Filed: 09/26/17 11:16> Family Contact Family involvement: Family/SO is involved Family contact: Patient declines to allow family contact at present - Goals for Treatment Patient goals for treatment: "I'm doing fine." Discharge/Continuing Care - Education Needs Education Needs: Patient Medication, Patient Coping Skills - Discharge Discharge Criteria: Tolerates medication w/o severe side effects, Reduction of target symptoms Discharge to:: Home, With Family - Treatment Team Participation Discussed with Family/SO: No Was Patient/Family/SO present at Treatment Team Meeting: Yes
--- NOTE | 2017-09-24 20:12 | PCM.PSYCH ---
Initial Psychiatric Evaluation - Initial Psychiatric Evaluation Type of Admission: Voluntary Legal Status: Capacity Chief Complaint (in patient's own words): I started feeling depressed and anxious. History of Present Illness and Precipitating Events: Pt is a 41 y/o female with history of Bipolar Disorder, Depression, Post Traumatic Stress Disorder, Schizophrenia, was admitted for depression, Suicidal ideation and auditory hallucinations. Patient was a poor historian and guarder and most of the formations were obtained from the old record. Patient reported she was suicidal with a plan to OD on pills. Pt. reports that she has not been sleeping and has been pacing a lot. Pt displays disorganized thought process and flat affect during the evaluation and on the floor. Pt states that she lives with her mother. Pt was diagnosed in 2016 by her psychiatrist, Dr. Pollock of [facility]. She has been prescribed Prozac by previously mentioned physician. She states the elizabeth stressor and trigger of her depression are thoughts on her past failed relationship. Pt states she is still experiencing auditory hallucinations command type but denies visual hallucinations. She reported no sleep for last 2 days. However she denies any homicidal ideations. Pt reported the she drinks 2 glasses of wine a day and her last drink was on 07/21. She smoke 5 cigarettes a day for the past 5 years. Pt is interested in smoking cessation. Patient denied use of any other drugs. Patient was unable to recall with treatment which she was getting. The medications were started according to the old record. Current Medications: Active Medications Generic Name Dose Route Start Last Admin Trade Name Freq PRN Reason Stop Dose Admin Benztropine Mesylate 1 mg 09/24/17 10:00 09/24/17 17:21 Cogentin PO 1 mg BID ANNA Administration Buspirone HCl 10 mg 09/24/17 18:00 09/24/17 17:22 Buspar PO 10 mg BID ANNA Administration Divalproex Sodium 250 mg 09/24/17 10:00 09/24/17 17:21 Depakote Er PO 250 mg BID ANNA Administration Fluphenazine HCl 5 mg 09/24/17 10:00 09/24/17 17:21 Prolixin PO 5 mg BID ANNA Administration Haloperidol 5 mg 09/23/17 18:40 Haldol PO Q8 PRN Agitation Trazodone HCl 50 mg 09/23/17 18:40 Desyrel PO HS PRN Insomnia Past Psychiatric History - Past Psychiatric History Previous Treatment History: Inpatient Prior Professional Help: [facility] History of Abuse: None report History of ETOH/Drug Use: See HPI History of Family Illness: None reported Pertinent Medical Hx (Current Medical&Sleep Prob, Allergies): Allergies Allergy/AdvReac Type Severity Reaction Status Date / Time almond Allergy RASH Verified 06/06/17 04:42 nut - unspecified [nut] Allergy SWELLING Verified 06/06/17 04:42 peanut Allergy RASH Verified 06/06/17 04:42 Penicillins Allergy SWELLING Verified 06/06/17 04:42 shellfish derived Allergy RASH Verified 06/06/17 04:42 Benztropine [Benztropine Mesylate] 1 mg PO BID 07/31/17 Buspar 07/31/17 Divalproex Sodium [Divalproex Sodium ER] 500 mg PO DAILY 07/31/17 Benztropine [Cogentin] 1 mg PO HS #30 tab 08/08/17 Divalproex [Depakote ER] 500 mg PO HS #30 ter 08/08/17 busPIRone [Buspar] 10 mg PO BID #60 tab 08/08/17 fluPHENAZine [Prolixin] 10 mg PO HS #30 tab 08/08/17 traZODone [Desyrel] 50 mg PO HS PRN #30 tab 08/08/17 Review of Systems - Psychiatric Psychiatric: Hallucinations, Other Mental Status Examination - Personal Presentation Personal Presentation: Looks stated age - Affect Affect: Constricted - Motor Activity Motor Activity: Calm - Reliability in Providing Information Reliability in Providing Information: Poor, due to alteration in thoughts - Speech Speech: Relevant - Mood Mood: Depressed - Formal Thought Process Formal Thought Process: Other - Hallucinations/Delusions Hallucinations: Other (None reported at the time of evaluation) Delusions: Other (None reported) - Obsessions/Compulsions Obsessions: None Compulsions: None - Cognitive Functions Orientation: Person, Place, Situation, Time Sensorium: Alert Attention/Concentration: Attentive Estimate of Intelligence: Average Judgement: Intact, as evidence by: Insight regarding need for hospitalization Memory: Recent intact, as evidence by: Other, Remote impaired as evidenced by: Inability to recall historical events - Risk Risk: Withdrawal, Diminished functioning - Strength & Assets Inventory Strength & Assets Inventory: Family support, Other - Limitations Limitations: Other DSM 5 DX - DSM 5 DSM 5 Diagnosis: Schizoaffective disorder bipolar type PTSD Alcohol use disorder moderate - Recommended/Plan of Treatment Treatment Recommendations and Plan of Treatment: Patient education Supportive therapy Started fluphenazine Other as needed medications. Projected ELOS: 8-10 days - Smoking Cessation Smoking Cessation Initiated: No
--- NOTE | 2017-09-25 13:08 | PCM.PYCHPN ---
Psychiatric Progress Note - Psychiatric Progress Note Patient seen today, length of contact: 15 minutes Patient Chief Complaint: I'm feeling much better. Problems Identified/Issues Discussed: Patient seen, chart reviewed, case discussed with the staff. Issues related to illness and treatment were discussed with the patient. Reported compliant with treatment with no adverse affects. Feeling better with better sleep and mood. Staff reported that patient was found pacing and appeared depressed, patient denied. Patient reported feeling better and no depression. Aftercare discussed with the patient. Patient didn't decided checked for her follow-up care. At the time of evaluation, patient was awake alert oriented 3, no delusions, no auditory or visual hallucinations, no suicidal ideations or homicidal ideations. Medical Problems: None reported Diagnostic Results: Reviewed DSM 5 Symptoms Update: Some improvement with treatment. Medication Change: No Medical Record Reviewed: Yes Mental Status Examination - Cognitive Function Orientation: Person, Place, Situation, Time Memory: Intact Attention: WNL Concentration: WNL Association: WNL Fund of Knowledge: WN Decription of patient's judgement and insights: Fair - Mood Mood: Neutral - Affect Affect: Flat - Speech Speech: Appropriate - Formal Thought Process Formal Thought Process: No Impairment - Suicidal Ideation Suicidal Ideation: No - Homicidal Ideation Homicidal Ideation: No Goal/Treatment Plan - Goal/Treatment Plan Need for Continued Stay: Remain at risks for inpatient hospitalization, Discharge may exacerbated symptoms, Severe functional impairment Progress Toward Problem(s) and Goals/Treatment Plan: Patient education Supportive therapy Continue treatment as before. Estimated Date of D/C: 09/28/17 - Smoking Cessation Smoking Cessation Initiated: No
[2017-09-26 06:41] VITALS: O2SAT 95
--- NOTE | 2017-09-26 10:55 | PCM.PYCHPN ---
Psychiatric Progress Note - Psychiatric Progress Note Patient seen today, length of contact: 15 minutes Patient Chief Complaint: i was feeling anxious Problems Identified/Issues Discussed: Patient seen and evaluated, chart reviewed and discussed with the nurse. Patient appears more organized and less paranoid and less delusional. Patient remained isolated, confined and withdrawn. Patient still appears mildly paranoid and delusional. Patient reports improvement in her mood and improvement in her anxiety. Pt denies auditory and visual hallucinations. Patient retracted her 48 hours discharge notice, and agreed the treatment plan. Patient is compliant with medications and denies any side effects. Symptoms are improving but need more time to stabilize. Support and psychoeducation given. Medication Change: No Medical Record Reviewed: Yes Mental Status Examination - Cognitive Function Orientation: Person, Place, Situation, Time Memory: Intact Attention: WNL Concentration: WNL Association: Loose Fund of Knowledge: WNL - Mood Mood: Anxious - Affect Affect: Constricted - Speech Speech: Appropriate, Soft - Formal Thought Process Formal Thought Process: Paranoia, Loosening of associations - Suicidal Ideation Suicidal Ideation: No - Homicidal Ideation Homicidal Ideation: No Goal/Treatment Plan - Goal/Treatment Plan Need for Continued Stay: Remain at risks for inpatient hospitalization, Discharge may exacerbated symptoms, Severe functional impairment Progress Toward Problem(s) and Goals/Treatment Plan: Schizoaffective disorder bipolar type PTSD CBT Psychoeducation Supportive therapy, group therapy, individual therapy Increase Prolixin to 10 mg by mouth twice a day Depakote 250 mg PO BID Buspar 10 mg PO 2 times a day Trazodone 50 mg by mouth daily at bedtime Alcohol use disorder moderate CBT Psychoeducation Supportive therapy, individual therapy Use [place] for abstinence Estimated Date of D/C: 09/28/17 - Smoking Cessation Smoking Cessation Initiated: No
--- NOTE | 2017-09-27 12:56 | PCM.PYCHPN ---
Psychiatric Progress Note - Psychiatric Progress Note Patient seen today, length of contact: 15 minutes Patient Chief Complaint: I feel anxious Problems Identified/Issues Discussed: Patient seen and evaluated, chart reviewed and discussed with the nurse. Patient appears more organized and less paranoid and less delusional. Patient remained isolated, confined and withdrawn. Patient reports improvement in her mood and improvement in her anxiety. Pt denies auditory and visual hallucinations. Patient is compliant with medications and denies any side effects. Symptoms are improving but need more time to stabilize. Support and psychoeducation given. Medication Change: No Medical Record Reviewed: Yes Mental Status Examination - Cognitive Function Orientation: Person, Place, Situation, Time Memory: Intact Attention: WNL Concentration: WNL Association: Loose Fund of Knowledge: WNL - Mood Mood: Anxious - Affect Affect: Constricted - Speech Speech: Appropriate, Soft - Formal Thought Process Formal Thought Process: Paranoia, Loosening of associations - Suicidal Ideation Suicidal Ideation: No - Homicidal Ideation Homicidal Ideation: No Goal/Treatment Plan - Goal/Treatment Plan Need for Continued Stay: Remain at risks for inpatient hospitalization, Discharge may exacerbated symptoms, Severe functional impairment Progress Toward Problem(s) and Goals/Treatment Plan: Schizoaffective disorder bipolar type PTSD -CBT -Psychoeducation -Supportive therapy, group therapy, individual therapy -Prolixin to 10 mg by mouth twice a day -Depakote 250 mg PO BID -Buspar 10 mg PO 2 times a day -Trazodone 50 mg by mouth daily at bedtime Alcohol use disorder moderate -CBT -Psychoeducation -Supportive therapy, individual therapy -Use [place] for abstinence UTI -Cipro 500mg PO BID - Repeat UA prior to discharge DW Ivonne Newton DO, PGY-1 Estimated Date of D/C: 09/28/17
[2017-09-28 06:31] VITALS: BP 117/78; PULSE 73; RESP 20; TEMP 98.1
--- NOTE | 2017-09-28 11:05 | PCM.PYCHDC ---
Mental Status Examination - Mental Status Examination Orientation: Person, Place, Situation, Time Memory: Intact Mood: Neutral Affect: Constricted Speech: Soft Attention: WNL Concentration: WNL Association: WNL Fund of Knowledge: WNL Formal Thought Process: No Impairment Description of patient's judgement and insight: good, fair Psychotic Thoughts and Behaviors: denies any AVH Suicidal Ideation: No Current Homicidal Ideation?: No Discharge Summary - Discharge Note Reason for Hospitalization: Pt is a 41 y/o female with history of Bipolar Disorder, Depression, Post Traumatic Stress Disorder, Schizophrenia, was admitted for depression, Suicidal ideation and auditory hallucinations. Patient was a poor historian and guarder and most of the formations were obtained from the old record. Patient reported she was suicidal with a plan to OD on pills. Pt. reports that she has not been sleeping and has been pacing a lot. Pt displays disorganized thought process and flat affect during the evaluation and on the floor. Pt states that she lives with her mother. Pt was diagnosed in 2016 by her psychiatrist, Dr. Pollock of [facility]. She has been prescribed Prozac by previously mentioned physician. She states the elizabeth stressor and trigger of her depression are thoughts on her past failed relationship. Pt states she is still experiencing auditory hallucinations command type but denies visual hallucinations. She reported no sleep for last 2 days. However she denies any homicidal ideations. Pt reported the she drinks 2 glasses of wine a day and her last drink was on 07/21. She smoke 5 cigarettes a day for the past 5 years. Pt is interested in smoking cessation. Patient denied use of any other drugs. Patient was unable to recall with treatment which she was getting. The medications were started according to the old record. Consultations:: List each consultation separately and include: 1. Reason for request. 2. Findings. 3. Follow-up Summary of Hospital Course include:: 1. Description of specific treatment plan utilized for patients during their course of treatmen. 2. Summarize the time- course for resolution of acute symptoms and/or regressed behaviors. 3. Describe issues identified and worked on during hospitalization. 4. Describe medication utilized. 5. Describe medical problems identified and treated. 6. Reassessment of suicide risk - Diagnosis (1) Schizophrenia Current Visit: No Status: Acute Priority: High - Final Diagnosis (DSM 5) Condition upon Discharge: STABLE DSM 5: Schizoaffective disorder bipolar type PTSD Alcohol use disorder moderate Disposition: HOME/ ROUTINE Follow-up Treatment Plan: Schizoaffective disorder bipolar type PTSD CBT Psychoeducation Supportive therapy, group therapy, individual therapy Increase Prolixin to 10 mg by mouth twice a day Depakote 250 mg PO BID Buspar 10 mg PO 2 times a day Trazodone 50 mg by mouth daily at bedtime Alcohol use disorder moderate CBT Psychoeducation Supportive therapy, individual therapy Use UT for abstinence Prescriptions/Medication Reconciliation: Benztropine [Cogentin] 1 mg PO BID #60 tab busPIRone [Buspar] 10 mg PO BID #60 tab Ciprofloxacin [Cipro] 500 mg PO BID #10 tab Divalproex [Depakote ER] 250 mg PO BID #60 ter fluPHENAZine [Prolixin] 10 mg PO BID #60 tab - Smoking Cessation Smoking Cessation Medication prescribed: No - Antipsychotic Medications Pt discharged on 2 or more routine antipsychotic medications: No
== END 2017-09-28 11:20 | disposition home or self-care (01) | DRG 430 ==
LOC: C.ER 12:10 → C.5E 15:28
PROC: GZ56ZZZ Individual Psychotherapy, Supportive (ICD-10-PCS; principal; 2017-09-23)
DX: F25.0 Schizoaffective disorder, bipolar type (principal); Z91.14 Patient's other noncompliance with medication regimen; F10.10 Alcohol abuse, uncomplicated; N39.0 Urinary tract infection, site not specified; F17.210 Nicotine dependence, cigarettes, uncomplicated; F43.10 Post-traumatic stress disorder, unspecified; J45.909 Unspecified asthma, uncomplicated

== ENCOUNTER 2018-03-17 12:01 | Inpatient (IN) | payer MEDICAID, OTHER ==
[2018-03-17 12:02] VITALS: BMI 17.2
[2018-03-17 13:09] LABS: BASO % 0.6 % (0.0-2.0); EOS % 0.5 % (0.0-4.0); HEMOGLOBIN 13.5 g/dL (11.0-16.0); LYMPH # 1.4 K/uL (1.0-4.3); LYMPH % 18.5 % (20.0-40.0); MEAN CELL VOLUME 94.2 fL (81.0-99.0); MEAN CORPUSCULAR HEMOGLOBIN 32.2 pg (27.0-31.0); MEAN CORPUSCULAR HGB CONC 34.2 g/dL (33.0-37.0); MEAN PLATELET VOLUME 9.9 fL (7.2-11.7); MONO # 0.7 K/uL (0.0-0.8); MONO % 8.6 % (0.0-10.0); NEUT # 5.5 K/uL (1.8-7.0); NEUT % 71.8 % (50.0-75.0); RBC 4.19 Mil/uL (3.80-5.20); RED CELL DISTRIBUTION WIDTH 12.2 % (11.5-14.5); WHITE BLOOD COUNT 7.6 K/uL (4.8-10.8)
[2018-03-17 13:15] LABS: HCG,QUALITATIVE URINE NEGATIVE (NEGATIVE)
--- NOTE | 2018-03-17 13:16 | C.PDOC ---
History Of Present Illness 42 y/o female presents to ED with c/o anxious and feeling depressed worsening today. Pt notes she takes Klonopin for the symptoms. Patient admits to suicidal ideation and denies HI, auditory or visual hallucinations, sob, chest pain or any other complaints at this time. Time Seen by Provider: 03/17/18 12:18 Chief Complaint (Nursing): Psychiatric Evaluation History Per: Patient History/Exam Limitations: no limitations Onset/Duration Of Symptoms: Days Current Symptoms Are (Timing): Still Present Suicide/Self Injury Attempted (Context): None Associated Symptoms: Anxiety, Depression, Suicidal Thoughts Past Medical History Reviewed: Historical Data, Nursing Documentation, Vital Signs Vital Signs: Last Vital Signs Temp 98.5 F 03/17/18 15:29 Pulse 85 03/17/18 15:29 Resp 16 03/17/18 15:29 BP 100/66 03/17/18 15:29 Pulse Ox 98 03/17/18 15:36 - Medical History PMH: Anxiety, Asthma, Bipolar Disorder, Depression, Migraine, Post Traumatic Stress Disorder, Schizophrenia Surgical History: No Surg Hx - [facility] Procedures GROUP PSYCHOTHERAPY (01/09/17) INDIVID PSYCHOTHERAP NEC (08/16/14) INDIVIDUAL PSYCHOTHERAPY, BEHAVIORAL (01/09/17) INDIVIDUAL PSYCHOTHERAPY, SUPPORTIVE (09/23/17) INJECT/INFUSE NEC (08/08/14) OTHER GROUP THERAPY (04/19/14) PSYCHIA INTERV/EVAL NEC (08/12/14) PSYCHIAT DRUG THERAP NEC (08/16/14) Family History: States: Hypertension - Social History Hx Tobacco Use: Yes Hx Alcohol Use: Yes Hx Substance Use: No - Immunization History Hx Tetanus Toxoid Vaccination: Yes Hx Influenza Vaccination: No Hx Pneumococcal Vaccination: No Review Of Systems Constitutional: Negative for: Fever, Chills Cardiovascular: Negative for: Chest Pain Respiratory: Negative for: Shortness of Breath Gastrointestinal: Negative for: Nausea, Vomiting Psych: Positive for: Anxiety, Depression, Suicidal ideation. Negative for: Withdrawal Physical Exam - Physical Exam Appears: Non-toxic, No Acute Distress Skin: Warm, Dry, No Rash Head: Atraumatic, Normacephalic Eye(s): bilateral: Normal Inspection, EOMI Nose: Normal Oral Mucosa: Moist Neck: Normal ROM, Supple Cardiovascular: Rhythm Regular Respiratory: Normal Breath Sounds, No Accessory Muscle Use, No Rales, No Rhonchi , No Wheezing Gastrointestinal/Abdominal: Soft, No Tenderness, No Guarding, No Rebound Extremity: Normal ROM Neurological/Psych: Oriented x3, Normal Speech, Normal Cognition ED Course And Treatment - Laboratory Results Result Diagrams: 03/17/18 13:05 03/17/18 13:05 O2 Sat by Pulse Oximetry: 98 (RA) Pulse Ox Interpretation: Normal Progress Note: Patient seen and evaluated by drying can worker who discussed case with Dr. Patel who accepted patient under his service. Disposition - Disposition Disposition: HOSPITALIZED Disposition Time: 15:00 Condition: STABLE - Clinical Impression Clinical Impression: Depression - PA / MANAGER ENVIRONMENT[employer] HEALTH AND SAFETY / Resident Statement MD/DO has reviewed & agrees with the documentation as recorded. - Scribe Statement The provider has reviewed the documentation as recorded by the Joseibehsan Ashford All medical record entries made by the Joseibehsan were at my direction and personally dictated by me. I have reviewed the chart and agree that the record accurately reflects my personal performance of the history, physical exam, medical decision making, and the department course for this patient. I have also personally directed, reviewed, and agree with the discharge instructions and disposition.
[2018-03-17 13:20] LABS: SQUAMOUS EPITHIAL 9 /hpf (0-5); URINE BACTERIA MOD (<OCC); URINE BILIRUBIN NEGATIVE (NEGATIVE); URINE BLOOD NEGATIVE (NEGATIVE); URINE CLARITY Hazy (Clear); URINE COLOR Amber (YELLOW); URINE GLUCOSE (UA) NORMAL (Normal); URINE LEUKOCYTE ESTERASE NEG Leu/uL (Negative); URINE PROTEIN 1+ mg/dL (NEGATIVE); URINE UROBILINOGEN NORMAL mg/dL (0.2-1.0)
[2018-03-17 13:36] LABS: BARBITURATES, UR NEGATIVE (NEGATIVE); BENZODIAZEPINES, UR NEGATIVE (NEGATIVE); OPIATES, UR NEGATIVE (NEGATIVE); PHENCYCLIDINE, UR NEGATIVE (NEGATIVE)
[2018-03-17 13:50] LABS: ALB/GLOB RATIO 1.1 (1.0-2.1); ALBUMIN 4.5 g/dL (3.5-5.0); ALT/SGPT 21 U/L (9-52); AST/SGOT 20 U/L (14-36); BLOOD UREA NITROGEN 12 mg/dL (7-17); CALCIUM 9.5 mg/dl (8.6-10.4); GFR AFRICAN-AMERICAN > 60; GFR NON-AFRICAN AMERICAN > 60
--- NOTE | 2018-03-17 16:41 | PCM.BM ---
<Tequila Escoto - Last Filed: 03/17/18 16:38> Treatment Plan Problems - Problems identified on initial assessmt Suicidal Ideations Date Initiated: 03/17/18 Time Initiated: 16:39 Assessment reference: NA Status: Active Anxiety Date Initiated: 03/17/18 Time Initiated: 16:39 Assessment reference: NA Status: Active Treatment assets and liabiliti Patient Assests: cooperative, ADL independent, physically healthy, good support system, negotiates basic needs Patient Liabilities: poor support system, relationship conflicts - Milieu Protocol Maintain good personal hygiene: daily Encourage regular showers, daily Remind patient to perform daily oral care, daily Assist patient to perform ADL's Conduct patient checks and document Observation sheet: Q15 minutes (safety checks) Maintain personal safety: every shift Educate patient to report safety concerns to staff, every shift Monitor environment for contraband/sharps Medication safety: Monitor for expected outcome, potential side effects: every shift, Assess barriers to learning: every shift, Assess readiness for medication education: every shift <Yaritza Patel - Last Filed: 03/20/18 12:56> - Diagnosis (1) Bipolar disorder Status: Acute Interventions: 03/20/18 12:56 * Assess/adjust medications daily and /or as needed * See patient on an individual basis 7x/week to assess level of manic behaviors and stability * Discuss risks, benefits, side effects and alternatives of medications * <Elsa Castro - Last Filed: 03/20/18 14:35> Family Contact Family involvement: Family/SO is involved Family contact: Patient declines to allow family contact at present - Goals for Treatment Patient goals for treatment: "I'm okay." Discharge/Continuing Care - Education Needs Education Needs: Patient Medication, Patient Coping Skills - Discharge Discharge Criteria: Tolerates medication w/o severe side effects, Reduction of target symptoms Discharge to:: Home, With Family - Treatment Team Participation Discussed with Family/SO: No Was Patient/Family/SO present at Treatment Team Meeting: Yes
[2018-03-18] MEDS ORDERED: Aluminum Hydroxide/Magnesium Hydroxide Susp (30 mL) PO PRN (13:24)
--- NOTE | 2018-03-18 13:44 | PCM.PSYCH ---
Initial Psychiatric Evaluation - Initial Psychiatric Evaluation Type of Admission: Voluntary Legal Status: Capacity Chief Complaint (in patient's own words): "I was having severe anxiety" History of Present Illness and Precipitating Events: The patient is seen, chart reviewed, case discussed. She is a 42 yo LF, single, no child, lives with mother, on SSI. She came to ER b/c of suicidal ideation with a plan to OD on medications. However, she immediately signed a 48-hour notice and now denies SI, wants to go. After talking with the public relations writer she agreed to rescind it and stay a little longer. She was last seeing Dr. Pollock and was given klonopin low dose. She is very picky about medications and refuses many of the, She is diagnosed with anorexia and bipolar disorder, but she claims she only has severe anxiety. She admits to having anorezia until recently but denies any body image issues, restricting/ purging and she looks in normal weight. In fact, she asked for ensure. Re bipolar d/o, she reports depressive sxs and she used to have AVH and delusions too, and even dx'ed with schizophrenia in the past. Her functioning is very poor and her mo asked our PES worker to admit her. No drug or alcohol use. Past psych hx: Many admissions, ER visits and 1-2 suicide attempts (last on in 05/2017 by OD). Trauma hx is unknown Family psych hx: Brother abused xanax Medical hx: Denies Current Medications: Active Medications Generic Name Dose Route Start Last Admin Trade Name Freq PRN Reason Stop Dose Admin Al Hydrox/Mg Hydrox/Simethicone 30 ml 03/18/18 13:24 Maalox 30 Ml PO Q6H PRN Indigestion / Heartburn Escitalopram Oxalate 5 mg 03/18/18 13:30 Lexapro PO DAILY ANNA Haloperidol 5 mg 03/17/18 17:49 Haldol PO Q6H PRN Agitation Hydroxyzine HCl 25 mg 03/17/18 17:49 Atarax PO Q4H PRN Anxiety Ibuprofen 400 mg 03/17/18 17:49 Motrin Tab PO Q6H PRN Pain, moderate (4-7) Pneumococcal Polyvalent Vaccine 0.5 ml 03/22/18 10:00 Pneumovax 23 Vaccine IM 03/22/18 10:01 .ONCE ONE Trazodone HCl 50 mg 03/17/18 17:49 Desyrel PO HS PRN Insomnia Past Psychiatric History - Past Psychiatric History Previous Treatment History: Inpatient Pertinent Medical Hx (Current Medical&Sleep Prob, Allergies): Allergies Allergy/AdvReac Type Severity Reaction Status Date / Time almond Allergy RASH Verified 03/09/18 12:48 nut - unspecified [nut] Allergy SWELLING Verified 03/09/18 12:48 peanut Allergy RASH Verified 03/09/18 12:48 Penicillins Allergy SWELLING Verified 03/16/18 10:51 shellfish derived Allergy RASH Verified 03/09/18 12:48 clonazePAM [clonAZEPAM] 0.25 mg PO DAILY PRN 03/17/18 Review of Systems - Neurological Neurological: UNREMARKABLE - Psychiatric Psychiatric: Abnormal Sleep Pattern, Anhedonia, Anxiety, Depression, Difficulty Concentrating, Irritability, Mood Swings. absent: Hallucinations, Homicidal Ideation, Suicidal Ideation Mental Status Examination - Personal Presentation Personal Presentation: Looks stated age - Affect Affect: Blunted - Motor Activity Motor Activity: Calm - Reliability in Providing Information Reliability in Providing Information: Fair - Speech Speech: Organized - Mood Mood: Depressed, Anxious - Formal Thought Process Formal Thought Process: No Impairment - Cognitive Functions Orientation: Person, Place, Situation, Time Sensorium: Alert Attention/Concentration: Attentive Estimate of Intelligence: Average Judgement: Intact, as evidence by: Insight regarding need for hospitalization Memory: Recent intact, as evidence by: Ability to recall events of the day, Remote intact, as evidenced by: Abilit to recall sig. life events - Risk Risk: Diminished functioning - Strength & Assets Inventory Strength & Assets Inventory: Family support, Cooperative - Limitations Limitations: Other DSM 5 DX - DSM 5 DSM 5 Diagnosis: Schizoaffective d/o, depressed, severe CHANTELLE Anorexia nervosa - in remission - Recommended/Plan of Treatment Treatment Recommendations and Plan of Treatment: Start low dose lexapro for depression and anxiety Seroquel for bipolar depression Consider gabapentin Prn medications All risks, benefits and alternatives of medications, including no medications, discussed and the patient understood and agreed. Attend groups and activities Individual therapy Psychoeducation and support Encourage compliance with meds and after care Refer to outpatient program Teach healthy lifestyle methods, i.e. diet, exercise, meditation Smoking cessation 32 min Projected ELOS: 4-5 days Prognosis: good to fair
--- NOTE | 2018-03-20 00:12 | PCM.PYCHPN ---
Psychiatric Progress Note - Psychiatric Progress Note Patient seen today, length of contact: 16 min Patient Chief Complaint: "I am better" Problems Identified/Issues Discussed: The pt is seen, chart reviewed, case discussed with staff. The pt is compliant with medications and reports no side-effects. Symptoms are improving but needs more time to stabilize. However, she keeps minimizing the sxs Support given, psycho-education provided. After care discussed. Medication Change: Yes Medical Record Reviewed: Yes Mental Status Examination - Cognitive Function Orientation: Person, Place, Situation, Time Memory: Intact Attention: WNL Concentration: Poor Association: WNL Fund of Knowledge: WNL - Mood Mood: Depressed, Anxious - Affect Affect: Constricted - Speech Speech: Appropriate - Formal Thought Process Formal Thought Process: No Impairment - Suicidal Ideation Suicidal Ideation: No - Homicidal Ideation Homicidal Ideation: No Goal/Treatment Plan - Goal/Treatment Plan Need for Continued Stay: Discharge may exacerbated symptoms, Severe functional impairment Progress Toward Problem(s) and Goals/Treatment Plan: Low dose lexapro for depression and anxiety Seroquel for bipolar depression Consider gabapentin Prn medications All risks, benefits and alternatives of medications, including no medications, discussed and the patient understood and agreed. Attend groups and activities Individual therapy Psychoeducation and support Encourage compliance with meds and after care Refer to outpatient program Teach healthy lifestyle methods, i.e. diet, exercise, meditation Smoking cessation Estimated Date of D/C: 03/22/18
--- NOTE | 2018-03-20 13:13 | PCM.PYCHPN ---
Psychiatric Progress Note - Psychiatric Progress Note Patient seen today, length of contact: 17 min Patient Chief Complaint: "I am anxious but much better, I was never suicidal, I have always lied" Problems Identified/Issues Discussed: Mrs. Mishra is seen, chart reviewed, case discussed with staff. She says that previous attempts at suicide were a misunderstanding and they were either a joke or did not happen. She says she no longer has body image issues and is not suicidal. The pt is compliant with medications and reports no side-effects. Her speech was hurried and she admitted to being anxious. Symptoms are improving but needs more time to stabilize. Pt attends groups and activities. Support given, psycho-education provided. After care discussed. Medication Change: Yes (increase seroquel) Medical Record Reviewed: Yes Mental Status Examination - Cognitive Function Orientation: Person, Place, Situation, Time Memory: Intact Attention: WNL Concentration: Poor Association: WNL Fund of Knowledge: WNL - Mood Mood: Depressed, Anxious - Affect Affect: Constricted - Speech Speech: Appropriate - Formal Thought Process Formal Thought Process: Paranoia - Suicidal Ideation Suicidal Ideation: No - Homicidal Ideation Homicidal Ideation: No Goal/Treatment Plan - Goal/Treatment Plan Need for Continued Stay: Discharge may exacerbated symptoms, Severe functional impairment Progress Toward Problem(s) and Goals/Treatment Plan: Low dose lexapro for depression and anxiety Seroquel for bipolar depression, dose increased slowly bc she is very nervous about meds Consider gabapentin Prn medications All risks, benefits and alternatives of medications, including no medications, discussed and the patient understood and agreed. Attend groups and activities Individual therapy Psychoeducation and support Encourage compliance with meds and after care Refer to outpatient program Teach healthy lifestyle methods, i.e. diet, exercise, meditation Smoking cessation Estimated Date of D/C: 03/22/18
--- NOTE | 2018-03-21 12:02 | PCM.PYCHPN ---
Psychiatric Progress Note - Psychiatric Progress Note Patient seen today, length of contact: 16 min Patient Chief Complaint: "I'm OK today" Problems Identified/Issues Discussed: Ms. Mishra is seen, chart reviewed, case discussed with staff. Pt reports she is doing better and she slept well. She denies any type of hallucinations however, nurses reported pt laughing to self and talking to self. Additional medication of Cogentin, Lexapro, Haldol discussed with pt and pt agreed. Symptoms are improving but needs more time to stabilize. Pt attends groups and activities. Support given, psycho-education provided. After care discussed. Medication Change: Yes (start haldol) Medical Record Reviewed: Yes Mental Status Examination - Cognitive Function Orientation: Person, Place, Situation, Time Memory: Intact Attention: WNL Concentration: Poor Association: WNL Fund of Knowledge: WNL - Mood Mood: Depressed, Anxious - Affect Affect: Constricted - Speech Speech: Appropriate - Formal Thought Process Formal Thought Process: Hallucinations (likely but she is hiding), Delusions, Paranoia - Suicidal Ideation Suicidal Ideation: No - Homicidal Ideation Homicidal Ideation: No Goal/Treatment Plan - Goal/Treatment Plan Need for Continued Stay: Discharge may exacerbated symptoms, Severe functional impairment Progress Toward Problem(s) and Goals/Treatment Plan: Lexapro for depression and anxiety Seroquel for bipolar depression, dose increased slowly bc she is very nervous about meds Haldol for psychosis Consider gabapentin Prn medications All risks, benefits and alternatives of medications, including no medications, discussed and the patient understood and agreed. Attend groups and activities Individual therapy Psychoeducation and support Encourage compliance with meds and after care Refer to outpatient program Teach healthy lifestyle methods, i.e. diet, exercise, meditation Smoking cessation Estimated Date of D/C: 03/24/18
[2018-03-22] MEDS ORDERED: Pneumococcal 23-Valent Vaccine IM ONE (10:00)
--- NOTE | 2018-03-22 12:51 | PCM.PYCHPN ---
Psychiatric Progress Note - Psychiatric Progress Note Patient seen today, length of contact: 16 min Patient Chief Complaint: "I'm just OK" Problems Identified/Issues Discussed: The pt is seen, chart reviewed, case discussed with staff. The pt is compliant with medications and reports no side-effects. Symptoms are improving but VERY slowly needs more time to stabilize. She couldn't stop talkingto herself and laughing to self in the group yesterday Internally precoccupied, disorganized, but tries to hide them Pt attends groups and activities but her mind is not there. Support given, psycho-education provided. After care discussed. Medication Change: Yes (Haldol Decanoate added) Medical Record Reviewed: Yes Mental Status Examination - Cognitive Function Orientation: Person, Place, Situation, Time Memory: Intact Attention: WNL Concentration: Poor Association: WNL Fund of Knowledge: WNL - Mood Mood: Depressed, Anxious - Affect Affect: Constricted - Speech Speech: Appropriate - Formal Thought Process Formal Thought Process: Hallucinations (likely but she is hiding), Delusions, Paranoia - Suicidal Ideation Suicidal Ideation: No - Homicidal Ideation Homicidal Ideation: No Goal/Treatment Plan - Goal/Treatment Plan Need for Continued Stay: Discharge may exacerbated symptoms, Severe functional impairment Progress Toward Problem(s) and Goals/Treatment Plan: Lexapro for depression and anxiety Seroquel for bipolar depression, dose increased slowly bc she is very nervous about meds Haldol for psychosis, now depot added Prn medications All risks, benefits and alternatives of medications, including no medications, discussed and the patient understood and agreed. Attend groups and activities Individual therapy Psychoeducation and support Encourage compliance with meds and after care Refer to outpatient program Teach healthy lifestyle methods, i.e. diet, exercise, meditation Smoking cessation Estimated Date of D/C: 03/27/18
[2018-03-23 06:48] VITALS: O2SAT 98
--- NOTE | 2018-03-23 14:20 | PCM.PYCHPN ---
Psychiatric Progress Note - Psychiatric Progress Note Patient seen today, length of contact: 15 min Patient Chief Complaint: "No problems" Problems Identified/Issues Discussed: The pt is seen, chart reviewed, case discussed with staff. The pt is compliant with medications and reports no side-effects. Symptoms are improving very slowly but needs more time to stabilize. Pt attends groups and activities, but she is internally preoccupied Haldol dec given, will get 2 doses Support given, psycho-education provided. After care discussed. She says she kathie lgo but it's unlikely due to low insight Medication Change: Yes (Haldol Decanoate added) Medical Record Reviewed: Yes Mental Status Examination - Cognitive Function Orientation: Person, Place, Situation, Time Memory: Intact Attention: WNL Concentration: Poor Association: WNL Fund of Knowledge: WNL - Mood Mood: Depressed, Anxious - Affect Affect: Constricted - Speech Speech: Appropriate - Formal Thought Process Formal Thought Process: Hallucinations (likely but she is hiding), Delusions, Paranoia - Suicidal Ideation Suicidal Ideation: No - Homicidal Ideation Homicidal Ideation: No Goal/Treatment Plan - Goal/Treatment Plan Need for Continued Stay: Discharge may exacerbated symptoms, Severe functional impairment Progress Toward Problem(s) and Goals/Treatment Plan: Lexapro for depression and anxiety Seroquel for bipolar depression, dose increased slowly bc she is very nervous about meds Haldol for psychosis, now depot added Prn medications All risks, benefits and alternatives of medications, including no medications, discussed and the patient understood and agreed. Attend groups and activities Individual therapy Psychoeducation and support Encourage compliance with meds and after care Refer to outpatient program Teach healthy lifestyle methods, i.e. diet, exercise, meditation Smoking cessation Estimated Date of D/C: 03/27/18
--- NOTE | 2018-03-24 14:49 | PCM.PYCHPN ---
Psychiatric Progress Note - Psychiatric Progress Note Patient seen today, length of contact: 15 min Patient Chief Complaint: "Waiting to go home soon" Problems Identified/Issues Discussed: The pt is seen, chart reviewed, case discussed with staff. The pt is compliant with medications and reports no side-effects. AIMS zero Second dose of Haldol to be given today Symptoms are improving but needs more time to stabilize. Still paranoid, has anorexic sxs (picky eater), internally preoccupied, odd Pt attends groups and activities. Support given, psycho-education provided. After care discussed. Medication Change: Yes (Haldol Decanoate added) Medical Record Reviewed: Yes Mental Status Examination - Cognitive Function Orientation: Person, Place, Situation, Time Memory: Intact Attention: WNL Concentration: Poor Association: WNL Fund of Knowledge: WNL - Mood Mood: Depressed, Anxious - Affect Affect: Constricted - Speech Speech: Appropriate - Formal Thought Process Formal Thought Process: Hallucinations (likely but she is hiding), Delusions, Paranoia - Suicidal Ideation Suicidal Ideation: No - Homicidal Ideation Homicidal Ideation: No Goal/Treatment Plan - Goal/Treatment Plan Need for Continued Stay: Discharge may exacerbated symptoms, Severe functional impairment Progress Toward Problem(s) and Goals/Treatment Plan: Lexapro for depression and anxiety Seroquel for bipolar depression, dose increased slowly bc she is very nervous about meds Haldol for psychosis, now depot added Prn medications All risks, benefits and alternatives of medications, including no medications, discussed and the patient understood and agreed. Attend groups and activities Individual therapy Psychoeducation and support Encourage compliance with meds and after care Refer to outpatient program Teach healthy lifestyle methods, i.e. diet, exercise, meditation Smoking cessation Labs for anorexia repeated. Estimated Date of D/C: 03/27/18
--- NOTE | 2018-03-25 23:19 | PCM.PYCHPN ---
Psychiatric Progress Note - Psychiatric Progress Note Patient seen today, length of contact: 15 min Patient Chief Complaint: "I'm getting better" Problems Identified/Issues Discussed: The pt is seen, chart reviewed, case discussed with staff. The pt is compliant with medications and reports no side-effects. Symptoms are improving but needs more time to stabilize. After care discussed, support and psychoeducation given. Medication Change: No Medical Record Reviewed: Yes Mental Status Examination - Cognitive Function Orientation: Person, Place, Situation, Time Memory: Intact Attention: WNL Concentration: Poor Association: WNL Fund of Knowledge: WNL Decription of patient's judgement and insights: improving/improving - Mood Mood: Depressed, Anxious - Affect Affect: Constricted - Speech Speech: Appropriate - Formal Thought Process Formal Thought Process: Hallucinations (likely but she is hiding), Delusions, Paranoia - Suicidal Ideation Suicidal Ideation: No Plan: denied - Homicidal Ideation Homicidal Ideation: No Plan: denied Goal/Treatment Plan - Goal/Treatment Plan Need for Continued Stay: Discharge may exacerbated symptoms, Severe functional impairment Progress Toward Problem(s) and Goals/Treatment Plan: Continue medications Support and psychoeducation daily Attend groups and activities daily After care planning by ABIEL Estimated Date of D/C: 03/27/18 - Smoking Cessation Smoking Cessation Initiated: Yes
[2018-03-26 06:18] VITALS: RESP 18
--- NOTE | 2018-03-26 14:23 | PCM.PYCHPN ---
Psychiatric Progress Note - Psychiatric Progress Note Patient seen today, length of contact: 15 min Patient Chief Complaint: "I'm feeling good" Problems Identified/Issues Discussed: The pt is seen, chart reviewed, case discussed with staff. Pt stated that she is feeling good. Pt reported improvement in her UTI symptoms. The pt is compliant with medications and reports no side-effects. Symptoms are improving but needs more time to stabilize. After care discussed, support and psychoeducation given. Medication Change: No Medical Record Reviewed: Yes Mental Status Examination - Cognitive Function Orientation: Person, Place, Situation, Time Memory: Intact Attention: WNL Concentration: Poor Association: WNL Fund of Knowledge: WNL Decription of patient's judgement and insights: improving/improving - Mood Mood: Depressed, Anxious - Affect Affect: Constricted - Speech Speech: Appropriate - Formal Thought Process Formal Thought Process: Hallucinations, Delusions, Paranoia - Suicidal Ideation Suicidal Ideation: No Plan: denied - Homicidal Ideation Homicidal Ideation: No Plan: denied Goal/Treatment Plan - Goal/Treatment Plan Need for Continued Stay: Discharge may exacerbated symptoms, Severe functional impairment Progress Toward Problem(s) and Goals/Treatment Plan: Continue medications Support and psychoeducation daily Attend groups and activities daily After care planning by ABIEL Estimated Date of D/C: 03/27/18 - Smoking Cessation Smoking Cessation Initiated: Yes
[2018-03-27 05:56] VITALS: BP 107/70; PULSE 77; TEMP 97.7
--- NOTE | 2018-03-27 12:04 | PCM.PYCHDC ---
Mental Status Examination - Mental Status Examination Orientation: Person Discharge Summary - Discharge Note Consultations:: List each consultation separately and include: 1. Reason for request. 2. Findings. 3. Follow-up Summary of Hospital Course include:: 1. Description of specific treatment plan utilized for patients during their course of treatmen. 2. Summarize the time- course for resolution of acute symptoms and/or regressed behaviors. 3. Describe issues identified and worked on during hospitalization. 4. Describe medication utilized. 5. Describe medical problems identified and treated. 6. Reassessment of suicide risk Summary of Hospital Course: The patient is seen, chart reviewed, case discussed. She is a 42 yo LF, single, no child, lives with mother, on SSI. She came to ER b/c of suicidal ideation with a plan to OD on medications. However, she immediately signed a 48-hour notice and now denies SI, wants to go. After talking with the staff writer she agreed to rescind it and stay a little longer. She was last seeing Dr. Pollock and was given klonopin low dose. She is very picky about medications and refuses many of the, She is diagnosed with anorexia and bipolar disorder, but she claims she only has severe anxiety. She admits to having anorezia until recently but denies any body image issues, restricting/ purging and she looks in normal weight. In fact, she asked for ensure. Re bipolar d/o, she reports depressive sxs and she used to have AVH and delusions too, and even dx'ed with schizophrenia in the past. Her functioning is very poor and her mo asked our PES worker to admit her. No drug or alcohol use. Past psych hx: Many admissions, ER visits and 1-2 suicide attempts (last on in 05/2017 by OD). Trauma hx is unknown Family psych hx: Brother abused xanax Medical hx: Denies [facility] [place] [facility] - Diagnosis (1) Bipolar disorder Current Visit: No Status: Acute - Final Diagnosis (DSM 5) Condition upon Discharge: STABLE Disposition: HOME/ ROUTINE Follow-up Treatment Plan: Lexapro for depression and anxiety Seroquel for bipolar depression, dose increased slowly bc she is very nervous about meds Haldol for psychosis, now depot added Prn medications All risks, benefits and alternatives of medications, including no medications, discussed and the patient understood and agreed. Attend groups and activities Individual therapy Psychoeducation and support Encourage compliance with meds and after care Refer to outpatient program Teach healthy lifestyle methods, i.e. diet, exercise, meditation Smoking cessation Labs for anorexia repeated. Prescriptions/Medication Reconciliation: Benztropine [Cogentin] 1 mg PO BID #60 tab Haloperidol [Haldol] 5 mg PO BID #60 tab QUEtiapine [SEROquel] 100 mg PO HS #30 tab
== END 2018-03-27 12:24 | disposition home or self-care (01) | DRG 430 ==
LOC: C.ER 12:01 → C.5E 14:43
PROVIDERS: ADMIT Psychiatry & Neurology Psychiatry; ATTEND Psychiatry & Neurology Psychiatry
DX: F31.9 Bipolar disorder, unspecified (principal); F50.00 Anorexia nervosa, unspecified; F43.10 Post-traumatic stress disorder, unspecified; I10 Essential (primary) hypertension; J45.909 Unspecified asthma, uncomplicated; R45.851 Suicidal ideations; Z87.891 Personal history of nicotine dependence; Z68.1 Body mass index [BMI] 19.9 or less, adult

== ENCOUNTER 2018-05-12 14:57 | Emergency (ER) | payer MEDICAID, OTHER ==
[2018-05-12 14:57] VITALS: BMI 17.2
[2018-05-12 15:08] VITALS: BP 129/91; PULSE 84; RESP 18; TEMP 97.4; O2SAT 99
--- NOTE | 2018-05-12 15:42 | C.PDOC ---
History Of Present Illness 42 y/o female with PMHx of anxiety presents to the ED for complaints of anxiety attack earlier today. Reports she is on medication (Zyprexa) for management of her symptoms. However, patient states unable to get medication today and had an anxiety attack. Denies any associated SI/HI, hallucinations. Time Seen by Provider: 05/12/18 15:12 Chief Complaint (Nursing): Anxiety History Per: Patient History/Exam Limitations: no limitations Onset/Duration Of Symptoms: Sudden Onset Current Symptoms Are (Timing): Still Present Suicide/Self Injury Attempted (Context): None Recent travel outside of the [place]: No Past Medical History Reviewed: Historical Data, Nursing Documentation, Vital Signs Vital Signs: Last Vital Signs Temp 97.4 F L 05/12/18 15:05 Pulse 84 05/12/18 15:05 Resp 18 05/12/18 16:12 BP 129/91 H 05/12/18 15:05 Pulse Ox 99 05/12/18 17:24 - Medical History PMH: Anxiety, Asthma, Bipolar Disorder, Depression, Migraine, Post Traumatic Stress Disorder, Schizophrenia Denies: Diabetes, Hepatitis, HIV, HTN, Chronic Kidney Disease, Seizures, Sexually Transmitted Disease Surgical History: - [facility] Procedures GROUP PSYCHOTHERAPY (01/09/17) INDIVID PSYCHOTHERAP NEC (08/16/14) INDIVIDUAL PSYCHOTHERAPY, BEHAVIORAL (01/09/17) INDIVIDUAL PSYCHOTHERAPY, SUPPORTIVE (09/23/17) INJECT/INFUSE NEC (08/08/14) OTHER GROUP THERAPY (04/19/14) PSYCHIA INTERV/EVAL NEC (08/12/14) PSYCHIAT DRUG THERAP NEC (08/16/14) Family History: States: Hypertension - Social History Hx Tobacco Use: Yes Hx Alcohol Use: Yes Hx Substance Use: No - Immunization History Hx Tetanus Toxoid Vaccination: Yes Hx Influenza Vaccination: No Hx Pneumococcal Vaccination: No Review Of Systems Except As Marked, All Systems Reviewed And Found Negative. Cardiovascular: Negative for: Chest Pain Respiratory: Negative for: Shortness of Breath Gastrointestinal: Negative for: Vomiting, Diarrhea Neurological: Negative for: Headache, Dizziness Psych: Positive for: Anxiety. Negative for: Suicidal ideation (or homicidal ideation), Other (hallucinations) Physical Exam - Physical Exam Appears: Non-toxic, No Acute Distress, Other (Appears anxious) Skin: Normal Color, Warm, Dry, No Rash Head: Atraumatic, Normacephalic Eye(s): bilateral: Normal Inspection Oral Mucosa: Moist Throat: No Erythema, No Exudate Neck: Normal ROM Chest: Symmetrical Cardiovascular: Rhythm Regular, No Murmur Respiratory: Normal Breath Sounds, No Accessory Muscle Use, Other (No respiratory distress) Gastrointestinal/Abdominal: Soft, No Tenderness, No Guarding, No Hernia Back: Normal Inspection, No CVA Tenderness Extremity: Normal ROM, No Swelling Extremity: Bilateral: Atraumatic, Normal Color And Temperature, Normal ROM Neurological/Psych: Oriented x3, Normal Speech Gait: Steady ED Course And Treatment O2 Sat by Pulse Oximetry: 99 (RA) Pulse Ox Interpretation: Normal Medical Decision Making Medical Decision Making: Plan: * Xanax PO Patient is stable for discharge home and reports improvement. Advised to follow up with her doctor. Disposition Counseled Patient/Family Regarding: Diagnosis, Need For Followup - Disposition Referrals: [facility] [Outside] [facility] [Outside] Disposition: HOME/ ROUTINE Disposition Time: 15:42 Condition: STABLE Additional Instructions: Follow up with the psychiatrist within 1-2 days. Return if worsened. Instructions: Anxiety, Adult (DC) Forms: [employer] (Swedish) - POA Present On Arrival: None - Clinical Impression Clinical Impression: Anxiety - PA / PROJECT BUYER / Resident Statement MD/DO has reviewed & agrees with the documentation as recorded. - Scribe Statement The provider has reviewed the documentation as recorded by the Scribe (Barbara Hay) All medical record entries made by the Scribe were at my direction and personally dictated by me. I have reviewed the chart and agree that the record accurately reflects my personal performance of the history, physical exam, medical decision making, and the department course for this patient. I have also personally directed, reviewed, and agree with the discharge instructions and disposition.
== END 2018-05-12 16:12 | disposition home or self-care (01) ==
LOC: C.ER 14:57
DX: F41.9 Anxiety disorder, unspecified (principal)

== ENCOUNTER 2018-05-31 12:51 | Emergency (ER) | payer MEDICAID, OTHER ==
[2018-05-31 12:51] VITALS: BMI 17.2
[2018-05-31 13:50] VITALS: RESP 18; TEMP 98.4
[2018-05-31 14:06] LABS: BASO % 0.5 % (0.0-2.0); EOS # 0.2 K/uL (0.0-0.7); EOS % 2.5 % (0.0-4.0); LYMPH # 1.8 K/uL (1.0-4.3); LYMPH % 23.9 % (20.0-40.0); MEAN CELL VOLUME 94.7 fL (81.0-99.0); MEAN CORPUSCULAR HEMOGLOBIN 32.5 pg (27.0-31.0); MEAN CORPUSCULAR HGB CONC 34.3 g/dL (33.0-37.0); MEAN PLATELET VOLUME 9.3 fL (7.2-11.7); MONO # 0.9 K/uL (0.0-0.8); MONO % 11.8 % (0.0-10.0); NEUT # 4.7 K/uL (1.8-7.0); NEUT % 61.3 % (50.0-75.0); NRBC % 0.1 % (0.0-2.0); RED CELL DISTRIBUTION WIDTH 12.3 % (11.5-14.5); WHITE BLOOD COUNT 7.6 K/uL (4.8-10.8)
[2018-05-31 14:15] LABS: HCG,QUALITATIVE URINE NEGATIVE (NEGATIVE)
[2018-05-31 14:21] LABS: SQUAMOUS EPITHIAL 4 /hpf (0-5); URINE BACTERIA MOD (<OCC); URINE BILIRUBIN NEGATIVE (NEGATIVE); URINE BLOOD 1+ (NEGATIVE); URINE CLARITY Clear (Clear); URINE COLOR Straw (YELLOW); URINE GLUCOSE (UA) NORMAL (Normal); URINE LEUKOCYTE ESTERASE NEG Leu/uL (Negative); URINE PROTEIN NEGATIVE (NEGATIVE); URINE UROBILINOGEN NORMAL mg/dL (0.2-1.0)
[2018-05-31 14:33] LABS: ALBUMIN 4.2 g/dL (3.5-5.0); ALT/SGPT 40 U/L (9-52); AST/SGOT 34 U/L (14-36); BLOOD UREA NITROGEN 9 mg/dL (7-17); CALCIUM 8.9 mg/dl (8.6-10.4); GFR NON-AFRICAN AMERICAN > 60
[2018-05-31 14:42] LABS: BARBITURATES, UR NEGATIVE (NEGATIVE); BENZODIAZEPINES, UR NEGATIVE (NEGATIVE); OPIATES, UR NEGATIVE (NEGATIVE); PHENCYCLIDINE, UR NEGATIVE (NEGATIVE)
--- NOTE | 2018-05-31 15:16 | C.PDOC ---
History Of Present Illness 42-year-old female with history of depression, anxiety and anorexia, presents to the emergency department because she is thinking about suicide. pt does not have a plan. She denies any HI. No other complaints at this time. She was seen by her psychiatrist recently and had her medication dosages adjusted. She states that she was at home this afternoon and began to feel anxious. Time Seen by Provider: 05/31/18 13:45 Chief Complaint (Nursing): Psychiatric Evaluation History Per: Patient History/Exam Limitations: no limitations Past Medical History Reviewed: Historical Data, Nursing Documentation, Vital Signs Vital Signs: Last Vital Signs Temp 98.4 F 05/31/18 13:30 Pulse 91 H 05/31/18 13:30 Resp 18 05/31/18 13:30 BP 112/79 05/31/18 13:30 Pulse Ox 97 05/31/18 13:30 - Medical History PMH: Anxiety, Asthma, Bipolar Disorder, Depression, Migraine, Post Traumatic Stress Disorder, Schizophrenia Surgical History: - [facility] Procedures GROUP PSYCHOTHERAPY (01/09/17) INDIVID PSYCHOTHERAP NEC (08/16/14) INDIVIDUAL PSYCHOTHERAPY, BEHAVIORAL (01/09/17) INDIVIDUAL PSYCHOTHERAPY, SUPPORTIVE (09/23/17) INJECT/INFUSE NEC (08/08/14) OTHER GROUP THERAPY (04/19/14) PSYCHIA INTERV/EVAL NEC (08/12/14) PSYCHIAT DRUG THERAP NEC (08/16/14) Family History: States: Hypertension - Social History Hx Tobacco Use: Yes Hx Alcohol Use: Yes Hx Substance Use: No - Immunization History Hx Tetanus Toxoid Vaccination: Yes Hx Influenza Vaccination: No Hx Pneumococcal Vaccination: No Review Of Systems Constitutional: Negative for: Fever Cardiovascular: Negative for: Chest Pain Respiratory: Negative for: Shortness of Breath Gastrointestinal: Negative for: Vomiting Skin: Negative for: Rash Neurological: Negative for: Weakness, Numbness, Headache, Dizziness Psych: Positive for: Suicidal ideation Physical Exam - Physical Exam Appears: Non-toxic, No Acute Distress Skin: Normal Color, Warm, Dry, No Rash Head: Atraumatic, Normacephalic Eye(s): bilateral: Normal Inspection, PERRL, EOMI Nose: Normal Oral Mucosa: Moist Lips: Normal Appearing Neck: Normal ROM Cardiovascular: Rhythm Regular, No Murmur Respiratory: Normal Breath Sounds, No Accessory Muscle Use Gastrointestinal/Abdominal: Normal Exam Back: Normal Inspection Extremity: Normal ROM, No Deformity Neurological/Psych: Oriented x3, Normal Speech ED Course And Treatment - Laboratory Results Result Diagrams: 05/31/18 14:01 05/31/18 14:01 Lab Interpretation: No Acute Changes O2 Sat by Pulse Oximetry: 97 Pulse Ox Interpretation: Normal (RA) Progress Note: Patient was seen by crisis and cleared for discharge. She can follow up with her psychiatrist Dr Pollock later this week. Medical Decision Making Medical Decision Making: Plan: * Crisis evaluation * Bloodwork * UA * Reassess and Disposition Disposition Counseled Patient/Family Regarding: Studies Performed, Diagnosis, Need For Followup - Disposition Disposition: HOME/ ROUTINE Disposition Time: 18:09 Condition: STABLE Instructions: Anxiety, Adult (DC) Forms: [employer] (Guamanian) - Clinical Impression Clinical Impression: Anxiety disorder - Scribe Statement Olivia Luna All medical record entries made by the Scribe were at my direction and personall y dictated by me. I have reviewed the chart and agree that the record accurately reflects my personal performance of the history, physical exam, medical decision making, and the department course for this patient. I have also personally directed, reviewed, and agree with the discharge instructions and disposition.
[2018-05-31 18:17] VITALS: BP 121/70; PULSE 74; O2SAT 98
== END 2018-05-31 18:16 | disposition home or self-care (01) ==
LOC: C.ER 12:51
DX: F41.9 Anxiety disorder, unspecified (principal)